=== PATIENT | male | born 1940 | race Caucasian/White ===

== ENCOUNTER 2017-05-28 21:43 | Observation (INO) | payer MEDICARE, OTHER ==
[2017-05-28] MEDS ORDERED: HYDROmorphone 2 MG/ML Syringe IVPUSH ONE (22:03)
[2017-05-28] MEDS ORDERED: Sodium Chloride 0.9% 2.5 ML Syringe FLUSH PRN (22:03)
[2017-05-28] MEDS ORDERED: Sodium Chloride 0.9% 10 ML Syringe FLUSH PRN (22:03)
[2017-05-28] MEDS ORDERED: Ondansetron 4 MG/2 ML SDV IVPUSH ONE (22:03)
--- NOTE | 2017-05-28 22:07 | EDM.PDOC ---
ED HPI GENERAL MEDICAL PROBLEM - General Chief Complaint: Abdominal Pain Stated Complaint: STOMACH PAIN Time Seen by Provider: 05/28/17 21:58 - History of Present Illness INITIAL COMMENTS - FREE TEXT/NARRATIVE: HISTORY AND PHYSICAL: History of present illness: Patient 77-year-old white male percent concern of lower abdominal pain patient has history of COPD he denies any prior abdominal surgery denies any history of diverticular disease gallbladder disease. There's been no vomiting no diarrhea no urinary symptoms. Review of systems: As per history of present illness and below otherwise all systems reviewed and negative. Past medical history: As per history of present illness and as reviewed below otherwise noncontributory. Surgical history: As per history of present illness and as reviewed below otherwise noncontributory. Social history: No reported history of drug or alcohol abuse. Family history: As per history of present illness and as reviewed below otherwise noncontributory. Physical exam: HEENT: Atraumatic, normocephalic, pupils reactive, negative for conjunctival pallor or scleral icterus, mucous membranes moist, throat clear, neck supple, nontender, trachea midline. Lungs: Clear to auscultation, breath sounds equal bilaterally, chest nontender. Heart: S1S2, regular, negative for clicks, rubs, or JVD. Abdomen: Soft, nondistended, mild tenderness in his lower abdomen is not well localized is no rebound no guarding. Negative for masses or hepatosplenomegaly. Negative for costovertebral tenderness. Pelvis: Stable nontender. Genitourinary: Deferred. Rectal: Deferred. Extremities: Atraumatic, negative for cords or calf pain. Neurovascular unremarkable. Neuro: Awake, alert, oriented. Cranial nerves II through XII unremarkable. Cerebellum unremarkable. Motor and sensory unremarkable throughout. Exam nonfocal. Diagnostics: CBC CMP amylase lipase UA troponin EKG chest x-ray CT abdomen and pelvis Therapeutics: Normal saline at 125 mL an hour Dilaudid 1 mg IV Zofran 4 mg IV Impression: #1 abdominal pain Definitive disposition and diagnosis as appropriate pending reevaluation and review of above. Right Abdomen Pain Score (Numeric/FACES): 8 - Related Data Allergies Allergy/AdvReac Type Severity Reaction Status Date / Time No Known Allergies Allergy Verified 08/14/16 15:14 Home Meds: Home Meds Budesonide/Formoterol [Symbicort 160-4.5 MCG] 1 puff INH BID 06/02/14 [History] Tiotropium [Spiriva] 18 mcg INH BID 06/02/14 [History] Albuterol [Ventolin HFA] 2 puff INH ASDIRECTED PRN 05/28/17 [History] Omeprazole 20 mg PO DAILY 05/28/17 [History] Past Medical History HEENT History: Reports: None Cardiovascular History: Reports: None Respiratory History: Reports: COPD Gastrointestinal History: Reports: None Genitourinary History: Reports: None Musculoskeletal History: Reports: None Neurological History: Reports: None Psychiatric History: Reports: None Endocrine/Metabolic History: Reports: None Hematologic History: Reports: None Immunologic History: Reports: None Oncologic (Cancer) History: Reports: None Dermatologic History: Reports: None - Infectious Disease History Infectious Disease History: Reports: Chicken Pox, Measles - Past Surgical History Head Surgeries/Procedures: Reports: None HEENT Surgical History: Reports: None Cardiovascular Surgical History: Reports: None Respiratory Surgical History: Reports: None GI Surgical History: Reports: None Male Surgical History: Reports: None Endocrine Surgical History: Reports: None Neurological Surgical History: Reports: None Musculoskeletal Surgical History: Reports: None Dermatological Surgical History: Reports: None Social & Family History - Family History Family Medical History: Noncontributory - Tobacco Use Smoking Status *Q: Former Smoker Years of Tobacco use: 20 Packs/Tins Daily: 1 Used Tobacco, but Quit: Yes Month Tobacco Last Used: 1979 - Caffeine Use Caffeine Use: Reports: Coffee - Alcohol Use Days Per Week of Alcohol Use: 1 Number of Drinks Per Day: 4 Total Drinks Per Week: 4 - Recreational Drug Use Recreational Drug Use: No ED ROS GENERAL - Review of Systems Review Of Systems: ROS reveals no pertinent complaints other than HPI. ED EXAM, GENERAL - Physical Exam Exam: See Below (See dictation) Course - Vital Signs Last Recorded V/S: Last Vital Signs Temp 36.5 C 05/28/17 21:54 Pulse 95 05/28/17 21:54 Resp 20 05/28/17 21:54 BP 136/76 05/28/17 21:54 Pulse Ox 92 L 05/28/17 21:54 - Orders/Labs/Meds Orders: Active Orders 24 hr Category Date Time Status Cardiac Monitoring [RC] . DIRECTED Care 05/28/17 22:01 Active EKG Documentation Completion [RC] STAT Care 05/28/17 22:01 Active Oxygen Therapy, ED [RC] ASDIRECTED Care 05/28/17 22:01 Active Pulse Oximetry [RC] ASDIRECTED Care 05/28/17 22:01 Active Abdomen Pelvis wo Cont [CT] Stat Exams 05/28/17 22:03 Taken CULTURE BLOOD [BC] Stat Lab 05/28/17 22:15 Received CULTURE BLOOD [BC] Stat Lab 05/28/17 22:22 Received Sodium Chloride 0.9% [Normal Saline] 1,000 ml Med 05/28/17 22:15 Active IV STAT Sodium Chloride 0.9% [Saline Flush] Med 05/28/17 22:03 Active 10 ml FLUSH ASDIRECTED PRN Sodium Chloride 0.9% [Saline Flush] Med 05/28/17 22:03 Active 2.5 ml FLUSH ASDIRECTED PRN Blood Culture x2 Reflex Set [OM.PC] Stat Oth 05/28/17 22:03 Ordered Saline Lock Insert [OM.PC] Stat Oth 05/28/17 22:01 Ordered Medication Orders Sodium Chloride (Normal Saline) 1,000 mls @ 125 mls/hr IV STAT KENYA Last Admin: 05/28/17 22:21 Dose: 125 mls/hr Sodium Chloride (Saline Flush) 10 ml FLUSH ASDIRECTED PRN PRN Reason: Keep Vein Open Sodium Chloride (Saline Flush) 2.5 ml FLUSH ASDIRECTED PRN PRN Reason: Keep Vein Open Labs: Laboratory Tests 05/28/17 05/28/17 05/28/17 Range/Units 22:00 22:15 22:15 WBC 13.20 H (4.0-11.0) K/uL RBC 4.86 (4.50-5.90) M/uL Hgb 14.7 (13.0-17.0) g/dL Hct 43.6 (38.0-50.0) % MCV 89.7 (80.0-98.0) fL MCH 30.2 (27.0-32.0) pg MCHC 33.7 (31.0-37.0) g/dL RDW Std Deviation 45.1 (28.0-62.0) fl RDW Coeff of [place] 14 (11.0-15.0) % Plt Count 226 (150-400) K/uL MPV 10.00 (7.40-12.00) fL Neut % (Auto) 79.1 (48.0-80.0) % Lymph % (Auto) 10.8 L (16.0-40.0) % [place] % (Auto) 8.5 (0.0-15.0) % Eos % (Auto) 1.3 (0.0-7.0) % Baso % (Auto) 0.3 (0.0-1.5) % Neut # (Auto) 10.4 H (1.4-5.7) K/uL Lymph # (Auto) 1.4 (0.6-2.4) K/uL [place] # (Auto) 1.1 H (0.0-0.8) K/uL Eos # (Auto) 0.2 (0.0-0.7) K/uL Baso # (Auto) 0.0 (0.0-0.1) K/uL Nucleated RBC % 0.0 /100WBC Nucleated RBCs # 0 K/uL INR 1.01 (0.86-1.11) Sodium (136-146) mmol/L Potassium (3.5-5.1) mmol/L Chloride (98-110) mmol/L Carbon Dioxide (21-31) mmol/L BUN (6.0-23.0) mg/dL Creatinine (0.6-1.5) mg/dL Est Cr Clr Drug Dosing mL/min Estimated GFR (MDRD) ml/min Glucose (60-110) mg/dL Calcium (8.8-10.8) mg/dL Total Bilirubin (0.1-1.5) mg/dL AST (5-40) IU/L ALT (8-54) IU/L Alkaline Phosphatase (40-150) Troponin I (0.0-0.29) NG/ML Total Protein (6.0-8.0) g/dL Albumin (3.4-4.8) g/dL Globulin (2.0-3.5) g/dL Albumin/Globulin Ratio (1.3-2.8) Amylase (10-90) U/L Lipase (7-80) U/L Urine Color YELLOW Urine Appearance CLEAR Urine pH 7.0 (5.0-8.0) Ur Specific [place] 1.010 (1.001-1.035) Urine Protein NEGATIVE (NEGATIVE) mg/dL Urine Glucose (UA) NEGATIVE (NEGATIVE) mg/dL Urine Ketones NEGATIVE (NEGATIVE) mg/dL Urine Occult Blood NEGATIVE (NEGATIVE) Urine Nitrite NEGATIVE (NEGATIVE) Urine Bilirubin NEGATIVE (NEGATIVE) Urine Urobilinogen 0.2 (<2.0) EU/dL Ur Leukocyte Esterase NEGATIVE (NEGATIVE) Urine RBC 0-3 (0-2/HPF) Urine WBC 0-2 (0-5/HPF) Ur Epithelial Cells RARE (NONE-FEW) Urine Bacteria RARE (NEGATIVE) 05/28/17 Range/Units 22:15 WBC (4.0-11.0) K/uL RBC (4.50-5.90) M/uL Hgb (13.0-17.0) g/dL Hct (38.0-50.0) % MCV (80.0-98.0) fL MCH (27.0-32.0) pg MCHC (31.0-37.0) g/dL RDW Std Deviation (28.0-62.0) fl RDW Coeff of [place] (11.0-15.0) % Plt Count (150-400) K/uL MPV (7.40-12.00) fL Neut % (Auto) (48.0-80.0) % Lymph % (Auto) (16.0-40.0) % [place] % (Auto) (0.0-15.0) % Eos % (Auto) (0.0-7.0) % Baso % (Auto) (0.0-1.5) % Neut # (Auto) (1.4-5.7) K/uL Lymph # (Auto) (0.6-2.4) K/uL [place] # (Auto) (0.0-0.8) K/uL Eos # (Auto) (0.0-0.7) K/uL Baso # (Auto) (0.0-0.1) K/uL Nucleated RBC % /100WBC Nucleated RBCs # K/uL INR (0.86-1.11) Sodium 138 (136-146) mmol/L Potassium 3.9 (3.5-5.1) mmol/L Chloride 104 (98-110) mmol/L Carbon Dioxide 22 (21-31) mmol/L BUN 17 (6.0-23.0) mg/dL Creatinine 1.0 (0.6-1.5) mg/dL Est Cr Clr Drug Dosing 59.67 mL/min Estimated GFR (MDRD) > 60.0 ml/min Glucose 127 H (60-110) mg/dL Calcium 9.3 (8.8-10.8) mg/dL Total Bilirubin 0.7 (0.1-1.5) mg/dL AST 17 (5-40) IU/L ALT 18 (8-54) IU/L Alkaline Phosphatase 79 (40-150) Troponin I < 0.10 (0.0-0.29) NG/ML Total Protein 7.4 (6.0-8.0) g/dL Albumin 3.9 (3.4-4.8) g/dL Globulin 3.5 (2.0-3.5) g/dL Albumin/Globulin Ratio 1.1 L (1.3-2.8) Amylase 72 (10-90) U/L Lipase 15 (7-80) U/L Urine Color Urine Appearance Urine pH (5.0-8.0) Ur Specific [place] (1.001-1.035) Urine Protein (NEGATIVE) mg/dL Urine Glucose (UA) (NEGATIVE) mg/dL Urine Ketones (NEGATIVE) mg/dL Urine Occult Blood (NEGATIVE) Urine Nitrite (NEGATIVE) Urine Bilirubin (NEGATIVE) Urine Urobilinogen (<2.0) EU/dL Ur Leukocyte Esterase (NEGATIVE) Urine RBC (0-2/HPF) Urine WBC (0-5/HPF) Ur Epithelial Cells (NONE-FEW) Urine Bacteria (NEGATIVE) Meds: Medications Generic Name Dose Route Start Last Admin Trade Name Freq PRN Reason Stop Dose Admin Sodium Chloride 1,000 mls @ 125 mls/hr 05/28/17 22:15 05/28/17 22:21 Normal Saline IV 125 mls/hr STAT KENYA Administration Sodium Chloride 10 ml 05/28/17 22:03 Saline Flush FLUSH ASDIRECTED PRN Keep Vein Open Sodium Chloride 2.5 ml 05/28/17 22:03 Saline Flush FLUSH ASDIRECTED PRN Keep Vein Open Discontinued Medications Generic Name Dose Route Start Last Admin Trade Name Freq PRN Reason Stop Dose Admin Hydromorphone HCl 1 mg 05/28/17 22:03 05/28/17 22:20 Dilaudid IVPUSH 05/28/17 22:04 1 mg ONETIME ONE Administration Ondansetron HCl 4 mg 05/28/17 22:03 05/28/17 22:20 Zofran IVPUSH 05/28/17 22:04 4 mg ONETIME ONE Administration Departure - Departure Time of Disposition: 23:48 Disposition: Refer to Observation Condition: Good Clinical Impression: Appendicitis - Discharge Information Referrals: Shaggy Miller MD [Primary Care Provider] - Forms: ED Department Discharge - My Orders Last 24 Hours: My Active Orders 05/28/17 22:01 Cardiac Monitoring [RC] . DIRECTED EKG Documentation Completion [RC] STAT Oxygen Therapy, ED [RC] ASDIRECTED Pulse Oximetry [RC] ASDIRECTED Saline Lock Insert [OM.PC] Stat 05/28/17 22:03 Abdomen Pelvis wo Cont [CT] Stat Sodium Chloride 0.9% [Saline Flush] 10 ml FLUSH ASDIRECTED PRN Sodium Chloride 0.9% [Saline Flush] 2.5 ml FLUSH ASDIRECTED PRN Blood Culture x2 Reflex Set [OM.PC] Stat 05/28/17 22:15 CULTURE BLOOD [BC] Stat Sodium Chloride 0.9% [Normal Saline] 1,000 ml IV STAT 05/28/17 22:22 CULTURE BLOOD [BC] Stat - Assessment/Plan Last 24 Hours: My Active Orders 05/28/17 22:01 Cardiac Monitoring [RC] . DIRECTED EKG Documentation Completion [RC] STAT Oxygen Therapy, ED [RC] ASDIRECTED Pulse Oximetry [RC] ASDIRECTED Saline Lock Insert [OM.PC] Stat 05/28/17 22:03 Abdomen Pelvis wo Cont [CT] Stat Sodium Chloride 0.9% [Saline Flush] 10 ml FLUSH ASDIRECTED PRN Sodium Chloride 0.9% [Saline Flush] 2.5 ml FLUSH ASDIRECTED PRN Blood Culture x2 Reflex Set [OM.PC] Stat 05/28/17 22:15 CULTURE BLOOD [BC] Stat Sodium Chloride 0.9% [Normal Saline] 1,000 ml IV STAT 05/28/17 22:22 CULTURE BLOOD [BC] Stat
[2017-05-28] MEDS ORDERED: Sodium Chloride 0.9% 1,000 ML IV SCH (22:15)
[2017-05-28 22:59] LABS: CHLORIDE,CL 104 mmol/L (98-110); SODIUM,NA 138 mmol/L (136-146)
[2017-05-29] MEDS ORDERED: cefOXitin 2 GM in Premix Bag 1 BAG IV ONE ×2
--- NOTE | 2017-05-29 00:15 | PCM.CONS ---
<Duc Don - Last Filed: 05/29/17 00:10> H&P History of Present Illness - General Date of Service: 05/29/17 Admit Problem/Dx: Appendicitis Source of Information: Patient History Limitations: Reports: No Limitations - History of Present Illness Initial Comments - Free Text/Narative: Mr. Doyle is a 77 year old male with a significant PMH of COPD in inhaler regimen, no previous abdominal surgeries, no allergies who presented to the ED 05/28/17 with acute onset of RLQ and periumbilical abdominal pain, nausea, symptomatic fever, chills, cold sweats, loss of appetite. He underwent CT imaging in the ED suspicious of appendicitis, found to have leukocytosis to 13. The patient denies any problems with anesthesia, states he is able to walk carrying groceries and go up stairs without issue. Onset of Symptoms: Reports: Sudden Symptom Onset Date: 05/28/17 Symptom Onset Time: 12:00 Location: Reports: Abdomen Quality: Reports: Ache Severity: Moderate Improves with: Reports: None Worsens with: Reports: Movement Associated Symptoms: Reports: Fever/Chills, Loss of Appetite, Nausea/Vomiting, Other (Pain) Right Abdomen Pain Score (Numeric/FACES): 8 - Related Data Allergies/Adverse Reactions: Allergies Allergy/AdvReac Type Severity Reaction Status Date / Time No Known Allergies Allergy Verified 08/14/16 15:14 Home Medications: Home Meds Budesonide/Formoterol [Symbicort 160-4.5 MCG] 1 puff INH BID 06/02/14 [History] Tiotropium [Spiriva] 18 mcg INH BID 06/02/14 [History] Albuterol [Ventolin HFA] 2 puff INH ASDIRECTED PRN 05/28/17 [History] Omeprazole 20 mg PO DAILY 05/28/17 [History] Past Medical History HEENT History: Reports: None Cardiovascular History: Reports: None Respiratory History: Reports: COPD Gastrointestinal History: Reports: None Genitourinary History: Reports: None Musculoskeletal History: Reports: None Neurological History: Reports: None Psychiatric History: Reports: None Endocrine/Metabolic History: Reports: None Hematologic History: Reports: None Immunologic History: Reports: None Oncologic (Cancer) History: Reports: None Dermatologic History: Reports: None - Infectious Disease History Infectious Disease History: Reports: Chicken Pox, Measles - Past Surgical History Head Surgeries/Procedures: Reports: None HEENT Surgical History: Reports: None Cardiovascular Surgical History: Reports: None Respiratory Surgical History: Reports: None GI Surgical History: Reports: None Male Surgical History: Reports: None Endocrine Surgical History: Reports: None Neurological Surgical History: Reports: None Musculoskeletal Surgical History: Reports: None Dermatological Surgical History: Reports: None Social & Family History - Family History Family Medical History: Noncontributory - Tobacco Use Smoking Status *Q: Former Smoker Years of Tobacco use: 20 Packs/Tins Daily: 1 Used Tobacco, but Quit: Yes Month Tobacco Last Used: 1979 - Caffeine Use Caffeine Use: Reports: Coffee - Alcohol Use Total Drinks Per Week Comment: Less than 7 - Recreational Drug Use Recreational Drug Use: No H&P Review of Systems - Review of Systems: Review Of Systems: See Below General: Reports: Fever, Chills, Diaphoresis, Decreased Appetite HEENT: Reports: No Symptoms Pulmonary: Reports: Other (No increased shortness of breath over baseline) Cardiovascular: Reports: No Symptoms. Denies: Chest Pain, Palpitations Gastrointestinal: Reports: Other (See HPI) Genitourinary: Reports: No Symptoms Musculoskeletal: Reports: No Symptoms Skin: Reports: No Symptoms Psychiatric: Reports: No Symptoms Neurological: Reports: No Symptoms Exam - Exam Exam: See Below - Vital Signs Vital Signs: Last Vital Signs Temp 36.5 C 05/28/17 21:54 Pulse 95 05/28/17 21:54 Resp 20 05/28/17 21:54 BP 136/76 05/28/17 21:54 Pulse Ox 92 L 05/28/17 21:54 Weight: 172 lb - Exam Quality Assessment: No: Supplemental Oxygen, Urinary Catheter, Restraints General: Alert, Oriented, Moderate Distress HEENT: Conjunctiva Clear, EOMI, Hearing Intact Neck: Supple, Trachea Midline Lungs: Decreased Breath Sounds (Bilaterally ). No: Crackles, Rales, Rhonchi, Stridor, Wheezing Cardiovascular: Regular Rate, Regular Rhythm GI/Abdominal Exam: Guarding (To RLQ), Tender (RLQ, not increased on rebound) Extremities: Normal Inspection, Normal Range of Motion, Non-Tender, No Pedal Edema Peripheral Pulses: 2+: Radial (L), Radial (R), Dorsalis Pedis (L), Dorsalis Pedis (R) Neurological: Cranial Nerves Intact Neuro Extensive - Mental Status: Alert, Oriented x3, Normal Mood/Affect, Normal Cognition, Memory Intact Psychiatric: Alert, Normal Affect, Normal Mood - Patient Data Lab Results Last 24 hrs: Laboratory Results - last 24 hr 05/28/17 05/28/17 05/28/17 Range/Units 22:00 22:15 22:15 WBC 13.20 H (4.0-11.0) K/uL RBC 4.86 (4.50-5.90) M/uL Hgb 14.7 (13.0-17.0) g/dL Hct 43.6 (38.0-50.0) % MCV 89.7 (80.0-98.0) fL MCH 30.2 (27.0-32.0) pg MCHC 33.7 (31.0-37.0) g/dL RDW Std Deviation 45.1 (28.0-62.0) fl RDW Coeff of [place] 14 (11.0-15.0) % Plt Count 226 (150-400) K/uL MPV 10.00 (7.40-12.00) fL Neut % (Auto) 79.1 (48.0-80.0) % Lymph % (Auto) 10.8 L (16.0-40.0) % [place] % (Auto) 8.5 (0.0-15.0) % Eos % (Auto) 1.3 (0.0-7.0) % Baso % (Auto) 0.3 (0.0-1.5) % Neut # (Auto) 10.4 H (1.4-5.7) K/uL Lymph # (Auto) 1.4 (0.6-2.4) K/uL [place] # (Auto) 1.1 H (0.0-0.8) K/uL Eos # (Auto) 0.2 (0.0-0.7) K/uL Baso # (Auto) 0.0 (0.0-0.1) K/uL Nucleated RBC % 0.0 /100WBC Nucleated RBCs # 0 K/uL INR 1.01 (0.86-1.11) Sodium (136-146) mmol/L Potassium (3.5-5.1) mmol/L Chloride (98-110) mmol/L Carbon Dioxide (21-31) mmol/L BUN (6.0-23.0) mg/dL Creatinine (0.6-1.5) mg/dL Est Cr Clr Drug Dosing mL/min Estimated GFR (MDRD) ml/min Glucose (60-110) mg/dL Calcium (8.8-10.8) mg/dL Total Bilirubin (0.1-1.5) mg/dL AST (5-40) IU/L ALT (8-54) IU/L Alkaline Phosphatase (40-150) Troponin I (0.0-0.29) NG/ML Total Protein (6.0-8.0) g/dL Albumin (3.4-4.8) g/dL Globulin (2.0-3.5) g/dL Albumin/Globulin Ratio (1.3-2.8) Amylase (10-90) U/L Lipase (7-80) U/L Urine Color YELLOW Urine Appearance CLEAR Urine pH 7.0 (5.0-8.0) Ur Specific [place] 1.010 (1.001-1.035) Urine Protein NEGATIVE (NEGATIVE) mg/dL Urine Glucose (UA) NEGATIVE (NEGATIVE) mg/dL Urine Ketones NEGATIVE (NEGATIVE) mg/dL Urine Occult Blood NEGATIVE (NEGATIVE) Urine Nitrite NEGATIVE (NEGATIVE) Urine Bilirubin NEGATIVE (NEGATIVE) Urine Urobilinogen 0.2 (<2.0) EU/dL Ur Leukocyte Esterase NEGATIVE (NEGATIVE) Urine RBC 0-3 (0-2/HPF) Urine WBC 0-2 (0-5/HPF) Ur Epithelial Cells RARE (NONE-FEW) Urine Bacteria RARE (NEGATIVE) 05/28/17 Range/Units 22:15 WBC (4.0-11.0) K/uL RBC (4.50-5.90) M/uL Hgb (13.0-17.0) g/dL Hct (38.0-50.0) % MCV (80.0-98.0) fL MCH (27.0-32.0) pg MCHC (31.0-37.0) g/dL RDW Std Deviation (28.0-62.0) fl RDW Coeff of Spring (11.0-15.0) % Plt Count (150-400) K/uL MPV (7.40-12.00) fL Neut % (Auto) (48.0-80.0) % Lymph % (Auto) (16.0-40.0) % [place] % (Auto) (0.0-15.0) % Eos % (Auto) (0.0-7.0) % Baso % (Auto) (0.0-1.5) % Neut # (Auto) (1.4-5.7) K/uL Lymph # (Auto) (0.6-2.4) K/uL [place] # (Auto) (0.0-0.8) K/uL Eos # (Auto) (0.0-0.7) K/uL Baso # (Auto) (0.0-0.1) K/uL Nucleated RBC % /100WBC Nucleated RBCs # K/uL INR (0.86-1.11) Sodium 138 (136-146) mmol/L Potassium 3.9 (3.5-5.1) mmol/L Chloride 104 (98-110) mmol/L Carbon Dioxide 22 (21-31) mmol/L BUN 17 (6.0-23.0) mg/dL Creatinine 1.0 (0.6-1.5) mg/dL Est Cr Clr Drug Dosing 59.67 mL/min Estimated GFR (MDRD) > 60.0 ml/min Glucose 127 H (60-110) mg/dL Calcium 9.3 (8.8-10.8) mg/dL Total Bilirubin 0.7 (0.1-1.5) mg/dL AST 17 (5-40) IU/L ALT 18 (8-54) IU/L Alkaline Phosphatase 79 (40-150) Troponin I < 0.10 (0.0-0.29) NG/ML Total Protein 7.4 (6.0-8.0) g/dL Albumin 3.9 (3.4-4.8) g/dL Globulin 3.5 (2.0-3.5) g/dL Albumin/Globulin Ratio 1.1 L (1.3-2.8) Amylase 72 (10-90) U/L Lipase 15 (7-80) U/L Urine Color Urine Appearance Urine pH (5.0-8.0) Ur Specific [place] (1.001-1.035) Urine Protein (NEGATIVE) mg/dL Urine Glucose (UA) (NEGATIVE) mg/dL Urine Ketones (NEGATIVE) mg/dL Urine Occult Blood (NEGATIVE) Urine Nitrite (NEGATIVE) Urine Bilirubin (NEGATIVE) Urine Urobilinogen (<2.0) EU/dL Ur Leukocyte Esterase (NEGATIVE) Urine RBC (0-2/HPF) Urine WBC (0-5/HPF) Ur Epithelial Cells (NONE-FEW) Urine Bacteria (NEGATIVE) Result Diagrams: 05/28/17 22:15 05/28/17 22:15 Consult PN Assessment/Plan Procedures: Procedures EMERGENCY DEPT VISIT (08/14/16) IMMUNIZATION ADMIN (06/02/14) RPR S/N/AX/GEN/TRNK 2.5CM/< (08/14/16) TD VACC NO PRESV 7 YRS+ IM (06/02/14) (1) Appendicitis SNOMED Code(s): 84966090 Code(s): K37 - UNSPECIFIED APPENDICITIS Priority: High Current Visit: Yes QualifierTitle: Appendicitis type: acute appendicitis Assessment:: Mr. Doyle is a 77 year old male with a significant PMH of COPD on inhaler regimen who is able to ambulate up stairs without increased shortness of breath , no known allergies, no previous abdominal surgeries who has tolerated anesthesia in the past without incident who presents with leukocytosis, CT concerning of appendicitis, RLQ and periumbilical abdominal pain with guarding, symptomatic fevers and chills, nausea, loss of appetite, last ate or drank at noon of 05/28/17. Problem List Initiated/Reviewed/Updated: Yes Plan: Recommend admission to Medical-Surgical floor, IVF rehydration, antibiotic therapy and laparoscopic versus open appendectomy later today. The risks, benefits and alternatives of the procedure were discussed with the patient including bleeding, infection, damage to surrounding structures, conversion to open, blood clots. The patient and his at beside agreed to this plan. The patient stated he would like to be full code. <Rashel Garcia - Last Filed: 05/29/17 00:26> H&P History of Present Illness - General Admit Problem/Dx: Admission Diagnosis/Problem Admission Diagnosis/Problem Appendicitis Exam - Vital Signs Vital Signs: Last Vital Signs Temp 97.7 F 05/28/17 21:54 Pulse 95 05/28/17 21:54 Resp 20 05/28/17 21:54 BP 136/76 05/28/17 21:54 Pulse Ox 92 L 05/28/17 21:54 - Patient Data Lab Results Last 24 hrs: Laboratory Results - last 24 hr 05/28/17 05/28/17 05/28/17 Range/Units 22:00 22:15 22:15 WBC 13.20 H (4.0-11.0) K/uL RBC 4.86 (4.50-5.90) M/uL Hgb 14.7 (13.0-17.0) g/dL Hct 43.6 (38.0-50.0) % MCV 89.7 (80.0-98.0) fL MCH 30.2 (27.0-32.0) pg MCHC 33.7 (31.0-37.0) g/dL RDW Std Deviation 45.1 (28.0-62.0) fl RDW Coeff of [place] 14 (11.0-15.0) % Plt Count 226 (150-400) K/uL MPV 10.00 (7.40-12.00) fL Neut % (Auto) 79.1 (48.0-80.0) % Lymph % (Auto) 10.8 L (16.0-40.0) % [place] % (Auto) 8.5 (0.0-15.0) % Eos % (Auto) 1.3 (0.0-7.0) % Baso % (Auto) 0.3 (0.0-1.5) % Neut # (Auto) 10.4 H (1.4-5.7) K/uL Lymph # (Auto) 1.4 (0.6-2.4) K/uL [place] # (Auto) 1.1 H (0.0-0.8) K/uL Eos # (Auto) 0.2 (0.0-0.7) K/uL Baso # (Auto) 0.0 (0.0-0.1) K/uL Nucleated RBC % 0.0 /100WBC Nucleated RBCs # 0 K/uL INR 1.01 (0.86-1.11) Sodium (136-146) mmol/L Potassium (3.5-5.1) mmol/L Chloride (98-110) mmol/L Carbon Dioxide (21-31) mmol/L BUN (6.0-23.0) mg/dL Creatinine (0.6-1.5) mg/dL Est Cr Clr Drug Dosing mL/min Estimated GFR (MDRD) ml/min Glucose (60-110) mg/dL Calcium (8.8-10.8) mg/dL Total Bilirubin (0.1-1.5) mg/dL AST (5-40) IU/L ALT (8-54) IU/L Alkaline Phosphatase (40-150) Troponin I (0.0-0.29) NG/ML Total Protein (6.0-8.0) g/dL Albumin (3.4-4.8) g/dL Globulin (2.0-3.5) g/dL Albumin/Globulin Ratio (1.3-2.8) Amylase (10-90) U/L Lipase (7-80) U/L Urine Color YELLOW Urine Appearance CLEAR Urine pH 7.0 (5.0-8.0) Ur Specific [place] 1.010 (1.001-1.035) Urine Protein NEGATIVE (NEGATIVE) mg/dL Urine Glucose (UA) NEGATIVE (NEGATIVE) mg/dL Urine Ketones NEGATIVE (NEGATIVE) mg/dL Urine Occult Blood NEGATIVE (NEGATIVE) Urine Nitrite NEGATIVE (NEGATIVE) Urine Bilirubin NEGATIVE (NEGATIVE) Urine Urobilinogen 0.2 (<2.0) EU/dL Ur Leukocyte Esterase NEGATIVE (NEGATIVE) Urine RBC 0-3 (0-2/HPF) Urine WBC 0-2 (0-5/HPF) Ur Epithelial Cells RARE (NONE-FEW) Urine Bacteria RARE (NEGATIVE) 05/28/17 Range/Units 22:15 WBC (4.0-11.0) K/uL RBC (4.50-5.90) M/uL Hgb (13.0-17.0) g/dL Hct (38.0-50.0) % MCV (80.0-98.0) fL MCH (27.0-32.0) pg MCHC (31.0-37.0) g/dL RDW Std Deviation (28.0-62.0) fl RDW Coeff of [place] (11.0-15.0) % Plt Count (150-400) K/uL MPV (7.40-12.00) fL Neut % (Auto) (48.0-80.0) % Lymph % (Auto) (16.0-40.0) % [place] % (Auto) (0.0-15.0) % Eos % (Auto) (0.0-7.0) % Baso % (Auto) (0.0-1.5) % Neut # (Auto) (1.4-5.7) K/uL Lymph # (Auto) (0.6-2.4) K/uL [place] # (Auto) (0.0-0.8) K/uL Eos # (Auto) (0.0-0.7) K/uL Baso # (Auto) (0.0-0.1) K/uL Nucleated RBC % /100WBC Nucleated RBCs # K/uL INR (0.86-1.11) Sodium 138 (136-146) mmol/L Potassium 3.9 (3.5-5.1) mmol/L Chloride 104 (98-110) mmol/L Carbon Dioxide 22 (21-31) mmol/L BUN 17 (6.0-23.0) mg/dL Creatinine 1.0 (0.6-1.5) mg/dL Est Cr Clr Drug Dosing 59.67 mL/min Estimated GFR (MDRD) > 60.0 ml/min Glucose 127 H (60-110) mg/dL Calcium 9.3 (8.8-10.8) mg/dL Total Bilirubin 0.7 (0.1-1.5) mg/dL AST 17 (5-40) IU/L ALT 18 (8-54) IU/L Alkaline Phosphatase 79 (40-150) Troponin I < 0.10 (0.0-0.29) NG/ML Total Protein 7.4 (6.0-8.0) g/dL Albumin 3.9 (3.4-4.8) g/dL Globulin 3.5 (2.0-3.5) g/dL Albumin/Globulin Ratio 1.1 L (1.3-2.8) Amylase 72 (10-90) U/L Lipase 15 (7-80) U/L Urine Color Urine Appearance Urine pH (5.0-8.0) Ur Specific [place] (1.001-1.035) Urine Protein (NEGATIVE) mg/dL Urine Glucose (UA) (NEGATIVE) mg/dL Urine Ketones (NEGATIVE) mg/dL Urine Occult Blood (NEGATIVE) Urine Nitrite (NEGATIVE) Urine Bilirubin (NEGATIVE) Urine Urobilinogen (<2.0) EU/dL Ur Leukocyte Esterase (NEGATIVE) Urine RBC (0-2/HPF) Urine WBC (0-5/HPF) Ur Epithelial Cells (NONE-FEW) Urine Bacteria (NEGATIVE) Result Diagrams: 05/28/17 22:15 05/28/17 22:15 Consult PN Assessment/Plan Procedures: Procedures EMERGENCY DEPT VISIT (08/14/16) IMMUNIZATION ADMIN (06/02/14) RPR S/N/AX/GEN/TRNK 2.5CM/< (08/14/16) TD VACC NO PRESV 7 YRS+ IM (06/02/14) (1) COPD (chronic obstructive pulmonary disease) SNOMED Code(s): 07287238 Code(s): J44.9 - CHRONIC OBSTRUCTIVE PULMONARY DISEASE, UNSPECIFIED Priority: Medium Current Visit: Yes Qualifiers: Chronic bronchitis type: simple My Orders Last 24 Hours: My Active Orders 05/29/17 00:17 Oxygen Therapy [RC] PRN Pulse Oximetry [RC] INTERMITTENT Up ad Lisbeth [RC] ASDIRECTED Vital Signs [RC] PER UNIT ROUTINE Sequential Compression Device [OM.PC] Routine Resuscitation Status Routine 05/29/17 00:18 Skin Preparation [RC] .PREOP Urinary Catheter Assessment [RC] ASDIRECTED Morphine See Dose Instructions IVPUSH Q1H PRN cefOXitin [Mefoxin in Dextrose,Iso-Osm 2 GM/50 ML] 2 gm Premix Bag 1 bag IV ONETIME 05/29/17 00:20 Antiembolic Devices [RC] PER UNIT ROUTINE Urinary Catheter Assessment [RC] ASDIRECTED 05/29/17 00:22 Admission Status [Patient Status] [ADT] Routine 05/29/17 00:30 Lactated Ringers @ 125 MLS/HR(1000ml) Lactated Ringers [Ringers, Lactated] 1, 000 ml IV ASDIRECTED 05/29/17 06:00 Antiembolic Hose [OM.PC] PER UNIT ROUTINE 05/29/17 08:00 cefOXitin [Mefoxin in Dextrose,Iso-Osm 1 GM/50 ML] 1 gm Premix Bag 1 bag IV Q8H 05/29/17 09:30 Lino Catheter Insertion [Insert Urinary Catheter] [OM.PC] Q24H 05/29/17 Breakfast Nothing Per Oral Diet [DIET] 05/30/17 06:00 Antiembolic Hose [OM.PC] PER UNIT ROUTINE Plan: Patient seen and examined with Dr. Don. I agree with his assessment and plan. Laparoscopic appendectomy, possible open appendectomy. Both operative procedures, along with the risks, including, but not limited to, bleeding, infection, pneumonia, deep venous thrombosis, pulmonary emboli, myocardial infarction, and adjacent organ injury have been reviewed with the patient who voices understanding, offers no questions and agrees to proceed.
[2017-05-29] MEDS ORDERED: Morphine 10 MG/ML Syringe IVPUSH PRN (00:18)
[2017-05-29] MEDS: Lactated Ringers 1,000 ML IV SCH ×3 (01:38→23:07)
[2017-05-29] MEDS ORDERED: ceFAZolin 1 GM Vial ONE (07:36)
[2017-05-29] MEDS ORDERED: Bupivacaine 0.5% 10 ML SDV ONE (07:37)
[2017-05-29] MEDS ORDERED: Famotidine 20 MG/2 ML SDV IVPUSH ONE (07:37)
--- NOTE | 2017-05-29 07:37 | PCM.PREANE ---
Preanesthetic Assessment - Anesthesia/Transfusion/Family Hx Anesthesia History: No Prior Anesthesia Transfusion History: No Prior Transfusion(s) - Review of Systems General: No Symptoms Pulmonary: No Symptoms Cardiovascular: No Symptoms Gastrointestinal: No Symptoms Neurological: No Symptoms Other: Reports: None - Physical Assessment NPO Status Date: 05/29/17 NPO Status Time: 00:00 O2 Sat by Pulse Oximetry: 92 Respiratory Rate: 17 Vital Signs: Last Vital Signs Temp 97.4 F 05/29/17 04:00 Pulse 78 05/29/17 04:00 Resp 17 05/29/17 04:00 BP 122/59 L 05/29/17 04:00 Pulse Ox 92 L 05/29/17 04:00 Height: 5 ft 7 in Weight: 78.925 kg ASA Class: 2 Mental Status: Alert & Oriented x3 Airway Class: Mallampati = 2 Dentition: Reports: Dentures (Full upper and lower sets) Thyro-Mental Finger Breadths: 3 Mouth Opening Finger Breadths: 3 ROM/Head Extension: Limited/Partial Lungs: Clear to Auscultation, Decreased Breath Sounds, Wheezing (Exp) Cardiovascular: Regular Rate, Regular Rhythm - Lab Values: Laboratory Last Values WBC 13.20 K/uL (4.0-11.0) H 05/28/17 22:15 RBC 4.86 M/uL (4.50-5.90) 05/28/17 22:15 Hgb 14.7 g/dL (13.0-17.0) 05/28/17 22:15 Hct 43.6 % (38.0-50.0) 05/28/17 22:15 MCV 89.7 fL (80.0-98.0) 05/28/17 22:15 MCH 30.2 pg (27.0-32.0) 05/28/17 22:15 MCHC 33.7 g/dL (31.0-37.0) 05/28/17 22:15 RDW Std Deviation 45.1 fl (28.0-62.0) 05/28/17 22:15 RDW Coeff of Spring 14 % (11.0-15.0) 05/28/17 22:15 Plt Count 226 K/uL (150-400) 05/28/17 22:15 MPV 10.00 fL (7.40-12.00) 05/28/17 22:15 Neut % (Auto) 79.1 % (48.0-80.0) 05/28/17 22:15 Lymph % (Auto) 10.8 % (16.0-40.0) L 05/28/17 22:15 [place] % (Auto) 8.5 % (0.0-15.0) 05/28/17 22:15 Eos % (Auto) 1.3 % (0.0-7.0) 05/28/17 22:15 Baso % (Auto) 0.3 % (0.0-1.5) 05/28/17 22:15 Neut # (Auto) 10.4 K/uL (1.4-5.7) H 05/28/17 22:15 Lymph # (Auto) 1.4 K/uL (0.6-2.4) 05/28/17 22:15 [place] # (Auto) 1.1 K/uL (0.0-0.8) H 05/28/17 22:15 Eos # (Auto) 0.2 K/uL (0.0-0.7) 05/28/17 22:15 Baso # (Auto) 0.0 K/uL (0.0-0.1) 05/28/17 22:15 Nucleated RBC % 0.0 /100WBC 05/28/17 22:15 Nucleated RBCs # 0 K/uL 05/28/17 22:15 INR 1.01 (0.86-1.11) 05/28/17 22:15 Sodium 138 mmol/L (136-146) 05/28/17 22:15 Potassium 3.9 mmol/L (3.5-5.1) 05/28/17 22:15 Chloride 104 mmol/L (98-110) 05/28/17 22:15 Carbon Dioxide 22 mmol/L (21-31) 05/28/17 22:15 BUN 17 mg/dL (6.0-23.0) 05/28/17 22:15 Creatinine 1.0 mg/dL (0.6-1.5) 05/28/17 22:15 Est Cr Clr Drug Dosing 59.67 mL/min 05/28/17 22:15 Estimated GFR (MDRD) > 60.0 ml/min 05/28/17 22:15 Glucose 127 mg/dL (60-110) H 05/28/17 22:15 Calcium 9.3 mg/dL (8.8-10.8) 05/28/17 22:15 Total Bilirubin 0.7 mg/dL (0.1-1.5) 05/28/17 22:15 AST 17 IU/L (5-40) 05/28/17 22:15 ALT 18 IU/L (8-54) 05/28/17 22:15 Alkaline Phosphatase 79 (40-150) 05/28/17 22:15 Troponin I < 0.10 NG/ML (0.0-0.29) 05/28/17 22:15 Total Protein 7.4 g/dL (6.0-8.0) 05/28/17 22:15 Albumin 3.9 g/dL (3.4-4.8) 05/28/17 22:15 Globulin 3.5 g/dL (2.0-3.5) 05/28/17 22:15 Albumin/Globulin Ratio 1.1 (1.3-2.8) L 05/28/17 22:15 Amylase 72 U/L (10-90) 05/28/17 22:15 Lipase 15 U/L (7-80) 05/28/17 22:15 Urine Color YELLOW 05/28/17 22:00 Urine Appearance CLEAR 05/28/17 22:00 Urine pH 7.0 (5.0-8.0) 05/28/17 22:00 Ur Specific [place] 1.010 (1.001-1.035) 05/28/17 22:00 Urine Protein NEGATIVE mg/dL (NEGATIVE) 05/28/17 22:00 Urine Glucose (UA) NEGATIVE mg/dL (NEGATIVE) 05/28/17 22:00 Urine Ketones NEGATIVE mg/dL (NEGATIVE) 05/28/17 22:00 Urine Occult Blood NEGATIVE (NEGATIVE) 05/28/17 22:00 Urine Nitrite NEGATIVE (NEGATIVE) 05/28/17 22:00 Urine Bilirubin NEGATIVE (NEGATIVE) 05/28/17 22:00 Urine Urobilinogen 0.2 EU/dL (<2.0) 05/28/17 22:00 Ur Leukocyte Esterase NEGATIVE (NEGATIVE) 05/28/17 22:00 Urine RBC 0-3 (0-2/HPF) 05/28/17 22:00 Urine WBC 0-2 (0-5/HPF) 05/28/17 22:00 Ur Epithelial Cells RARE (NONE-FEW) 05/28/17 22:00 Urine Bacteria RARE (NEGATIVE) 05/28/17 22:00 - Allergies Allergies/Adverse Reactions: Allergies Allergy/AdvReac Type Severity Reaction Status Date / Time No Known Allergies Allergy Verified 08/14/16 15:14 - Anesthesia Plan Free Text/Narrative:: CXR pending - Acknowledgements Anesthesia Type Planned: General Anesthesia Pt an Appropriate Candidate for the Planned Anesthesia: Yes Alternatives and Risks of Anesthesia Discussed w Pt/Guardian: Yes Pt/Guardian Understands and Agrees with Anesthesia Plan: Yes PreAnesthesia Questionnaire HEENT History: Reports: None Cardiovascular History: Reports: None Respiratory History: Reports: COPD, Other (See Below) (Previous smoker) Gastrointestinal History: Reports: GERD Genitourinary History: Reports: None Musculoskeletal History: Reports: None Neurological History: Reports: None Psychiatric History: Reports: None Endocrine/Metabolic History: Reports: None Hematologic History: Reports: None Immunologic History: Reports: None Oncologic (Cancer) History: Reports: None Dermatologic History: Reports: None - Infectious Disease History Infectious Disease History: Reports: Chicken Pox, Measles - Past Surgical History Head Surgeries/Procedures: Reports: None HEENT Surgical History: Reports: None Cardiovascular Surgical History: Reports: None Respiratory Surgical History: Reports: None GI Surgical History: Reports: None Male Surgical History: Reports: None Endocrine Surgical History: Reports: None Neurological Surgical History: Reports: None Musculoskeletal Surgical History: Reports: None Dermatological Surgical History: Reports: None - SUBSTANCE USE Smoking Status *Q: Former Smoker Tobacco Use Within Last Twelve Months: Cigarettes Second Hand Smoke Exposure: No Days Per Week of Alcohol Use: 1 Number of Drinks Per Day: 4 Total Drinks Per Week: 4 Recreational Drug Use History: No - HOME MEDS Home Medications: Home Meds Budesonide/Formoterol [Symbicort 160-4.5 MCG] 1 puff INH BID 06/02/14 [History] Tiotropium [Spiriva] 18 mcg INH BID 06/02/14 [History] Albuterol [Ventolin HFA] 2 puff INH ASDIRECTED PRN 05/28/17 [History] Omeprazole 20 mg PO DAILY 05/28/17 [History] - CURRENT (IN HOUSE) MEDS Current Meds: Current Medications Sodium Chloride (Normal Saline) 1,000 mls @ 125 mls/hr IV STAT KENYA Last Infusion: 05/29/17 01:38 Dose: 125 mls/hr Lactated Ringer's (Ringers, Lactated) 1,000 mls @ 125 mls/hr IV ASDIRECTED KENYA Last Admin: 05/29/17 01:38 Dose: 125 mls/hr Cefoxitin Sodium 1 gm/ Premix 50 mls @ 100 mls/hr IV Q8H KENYA Morphine Sulfate (Morphine) 1 - 5 mg IVPUSH Q1H PRN PRN Reason: Pain (severe 7-10) Last Admin: 05/29/17 04:19 Dose: 2 mg Sodium Chloride (Saline Flush) 10 ml FLUSH ASDIRECTED PRN PRN Reason: Keep Vein Open Sodium Chloride (Saline Flush) 2.5 ml FLUSH ASDIRECTED PRN PRN Reason: Keep Vein Open Discontinued Medications Hydromorphone HCl (Dilaudid) 1 mg IVPUSH ONETIME ONE Stop: 05/28/17 22:04 Last Admin: 05/28/17 22:20 Dose: 1 mg Cefoxitin Sodium 2 gm/ Premix 50 mls @ 100 mls/hr IV ONETIME ONE Stop: 05/29/17 00:29 Last Admin: 05/29/17 00:40 Dose: 100 mls/hr Ondansetron HCl (Zofran) 4 mg IVPUSH ONETIME ONE Stop: 05/28/17 22:04 Last Admin: 05/28/17 22:20 Dose: 4 mg
[2017-05-29] MEDS: cefOXitin 1 GM in Premix Bag 1 BAG IV SCH ×3 (08:05→23:10)
[2017-05-29] MEDS ORDERED: Propofol 200 MG/20 ML SDV ONE (08:26)
[2017-05-29] MEDS ORDERED: Midazolam 1 MG/ML 2 ML SDV ONE (08:27)
[2017-05-29] MEDS ORDERED: fentaNYL 100 MCG/2 ML SDV ONE (08:27)
[2017-05-29] MEDS ORDERED: Rocuronium 10 MG/ML 10 ML Syringe ONE (08:28)
[2017-05-29] MEDS ORDERED: diphenhydrAMINE 50 MG/ML SDV ONE (08:28)
[2017-05-29] MEDS ORDERED: Ketorolac 30 MG/ML SDV ONE (08:28)
[2017-05-29] MEDS ORDERED: Neostigmine Methylsulfate 1 MG/ML 5 ML Syringe ONE (08:28)
[2017-05-29] MEDS ORDERED: Ondansetron 4 MG/2 ML SDV ONE (08:28)
[2017-05-29] MEDS ORDERED: Lidocaine 2% Jelly 30 ML Tube ONE (09:21)
[2017-05-29] MEDS ORDERED: cefOXitin 1 GM Vial ONE (09:22)
[2017-05-29] MEDS ORDERED: HYDROmorphone 2 MG/ML Syringe ONE (09:23)
[2017-05-29] MEDS ORDERED: fentaNYL 100 MCG/2 ML SDV IVPUSH PRN (09:24)
[2017-05-29] MEDS ORDERED: ePHEDrine 50 MG/ML SDV ONE (09:59)
--- NOTE | 2017-05-29 11:15 | PCM.OPNOTE ---
- General Post-Op/Procedure Note Date of Surgery/Procedure: 05/29/17 Operative Procedure(s): Laparoscopic appendectomy Pre Op Diagnosis: Acute abdomen Post-Op Diagnosis: Acute appendicitis Anesthesia Technique: General ET Tube (ASA II) Primary Surgeon: Rashel Garcia Lead Developer: Duc Don Fluid Replacement, Intraop: 600 Output, Urine Amount: 400 EBL in mLs: 5 Condition: Fair Free Text/Narrative:: Intake & Output 05/28/17 05/29/17 05/29/17 19:59 03:59 11:59 Intake Total 410 50 Output Total 0 Balance 410 50 Dictation [id number] CPT CODE 60538
[2017-05-29] MEDS ORDERED: Acetaminophen 500 MG Tab PO PRN (11:17)
[2017-05-29] MEDS ORDERED: Benzocaine/Cetylpyridinium/Menthol Lozenge MUCMEM PRN (11:19)
[2017-05-29] MEDS ORDERED: Ondansetron 4 MG/2 ML SDV IVPUSH PRN (11:20)
[2017-05-29] MEDS ORDERED: Albuterol 8 GM Inhaler INH PRN (11:25)
--- NOTE | 2017-05-29 11:45 | PCM.POSTAN ---
POST ANESTHESIA ASSESSMENT - MENTAL STATUS Mental Status: Alert, Oriented - RESPIRATORY Respiratory Status: Respiratory Rate WNL, Airway Patent, O2 Saturation Stable - CARDIOVASCULAR CV Status: Pulse Rate WNL, Blood Pressure Stable - GASTROINTESTINAL GI Status: No Symptoms - POST OP HYDRATION Hydration Status: Adequate & Stable
[2017-05-29] MEDS: SPIRIVA 18 MCG INH SCH (12:34)
[2017-05-29] MEDS: Omeprazole 20 MG Cap.CR PO SCH (12:37)
[2017-05-29] MEDS: Acetaminophen/HYDROcodone 325-10 MG Tab PO PRN (16:04)
--- NOTE | 2017-05-29 17:29 | CT ---
EXAM DATE: 05/29/17 PATIENT'S AGE: 77 Patient: LUANN MARKS Facility: [place], [place] Site . Site : 1940 Study: CT Abdomen/Pelvis [id number]/26/2017 10:51:13 PM Ordering Physician: Sam Xavier Final Report: INDICATION: Generalized abdominal pain TECHNIQUE: CT abdomen and pelvis acquired without IV contrast. COMPARISON: None FINDINGS: Lower chest: Emphysematous changes. Liver: Unremarkable. Spleen: Unremarkable. Pancreas: Unremarkable. Gallbladder and bile ducts: Unremarkable. Kidneys: 1.0 centimeter partially exophytic hyperdense lesion is known right kidney. Adrenal glands: Unremarkable. GI tract: Unremarkable. Dilated thick-walled appendix measuring 9 millimeters in diameter with adjacent inflammatory stranding. Findings consistent with uncomplicated acute appendicitis. Vascular structures: Unremarkable. Lymph nodes: Unremarkable. Miscellaneous: Small fat containing umbilical hernia. No free air or significant free fluid. Pelvic Organs: Prostatomegaly. Bones: Unremarkable for age. IMPRESSION: Dilated thick-walled appendix measuring 9 millimeters in diameter with adjacent inflammatory stranding. Findings consistent with uncomplicated acute appendicitis. 1.0 centimeter round partially exophytic hyperdense lesion mid zone right kidney. Findings possibly representing a hyperdense cyst. Renal ultrasound on nonemergent basis may be helpful to better characterize. Prostatomegaly. Dictated by Hilton Hardin MD @ 05/28/2017 11:20:37 PM Dictated by: Hilton Hardin MD @ 05/28/2017 23:20:44 (Electronic Signature) Report Signed by Proxy. [facility]
--- NOTE | 2017-05-29 17:37 | CR ---
EXAM DATE: 05/29/17 PATIENT'S AGE: 77 Patient: LUANN MARKS Facility: [place], [place] Site . Site : 1940 Study: XRay Chest [id number]/27/2017 8:09:22 AM Ordering Physician: Jose Kiser Final Report: INDICATION: COPD; preop. Comparison: CT abdomen and pelvis 05/28/2017. Technique: Two-view chest. Findings: Normal size cardiac silhouette. Clear lung zuniga without evidence of acute pneumonic infiltrates or CHF. No pneumothorax or pleural effusion. Impression: Negative chest. Dictated by John Cali MD @ May 29 2017 8:18AM (Electronic Signature) Report Signed by Proxy. [facility]
--- NOTE | 2017-05-29 17:55 | OR ---
SURGEON: Rashel Garcia M.D. DATE OF PROCEDURE: 05/29/2017 OPERATION PERFORMED: Laparoscopic appendectomy. [employer] TENDER: Dr. Don, PGY-2. ANESTHESIA: General endotracheal. ASA CLASSIFICATION: II. PREOPERATIVE DIAGNOSIS: Acute abdomen and acute appendicitis. POSTOPERATIVE DIAGNOSIS: Acute appendicitis. ESTIMATED BLOOD LOSS: 5 mL. INTRAOPERATIVE FLUID REPLACEMENT: 600 mL of crystalloid. DESCRIPTION OF PROCEDURE: The patient was taken to the operating room and placed on the operating table in supine position. Time-out was called for appropriate identification of the patient and procedure. Thigh-high TEDs and sequential compression boots were placed. Following satisfactory attainment of general endotracheal anesthesia, a Lino catheter was placed in the patient's urinary bladder. The abdomen was prepped with DuraPrep solution and sterile drapes were applied. The skin incision was identified just above the umbilicus and infiltrated with 0.5% Marcaine solution. The skin incision was made and deepened through the subcutaneous tissue obtaining hemostasis with the use of electrocautery. The Veress needle was introduced into the peritoneal cavity. The saline drop test was positive. Carbon dioxide pneumoperitoneum was established with the release set at 13 cm of water. Once we had a satisfactory pneumoperitoneum, the patient was positioned with his head down and rolled to the left. Under camera vision, 12 mm suprapubic and 5 mm left lower quadrant ports were placed. Each incision was preemptively infiltrated with 0.5% Marcaine solution. The tip of the appendix was grasped, it was quite inflamed and did come apart, thus the appendix was removed in a piecemeal fashion. The base of the appendix was quite enlarged and castillo in color. The mesoappendix was taken down with the use of the Harmonic scalpel. We were then able to take an Endo-CAMMIE stapler with a blue load and place this across the base of the cecum above the enlarged appendix. Dissection was carried out until we could see the tips of the stapler beyond the edge of the cecum. The stapler was then fired. The wound was inspected for hemostasis. The mesoappendix was taken down with the Harmonic scalpel and then placed in an Endopouch. The right lower quadrant was irrigated with 1000 mL of crystalloid. All fluid was aspirated. No bleeding was noted. The Endopouch containing appendix was then delivered through the 12 mm suprapubic incision. The wounds were inspected for hemostasis. No other bleeding was noted. The suprapubic and supraumbilical incisions were closed in 2 layers approximating the subcutaneous tissue with 3-0 Polysorb and the skin with subcuticular Monocryl. It should be noted that because we had to enlarge the fascia in the suprapubic incision, the fascia was also closed with interrupted 0 Vicryl. The incisions were then Steri-Stripped and dressed with sterile Tegaderm pads. The left lower quadrant port incision was closed with subcuticular 4-0 Monocryl prior to Steri-Stripping. The patient tolerated the procedure well. Prior to emergence from anesthesia and extubation, the Lino catheter was removed. Following emergence from anesthesia and extubation, the patient was taken to recovery room in stable condition. RUBY GALLEGO /[id number]
[2017-05-29] MEDS: Budesonide 0.5 MG/2 ML Neb Susp NEB SCH (21:29)
[2017-05-30] MEDS: Acetaminophen/HYDROcodone 325-10 MG Tab PO PRN ×2 (02:01→06:57)
[2017-05-30] MEDS: Budesonide 0.5 MG/2 ML Neb Susp NEB SCH (06:26)
--- NOTE | 2017-05-30 07:44 | PCM.SURGPN ---
<Duc Don - Last Filed: 05/30/17 07:38> - General Info Date of Service: 05/30/17 Date of Surgery/Procedure: 05/29/17 POD#: 1 Post-Op Diagnosis: Acute Appendicitis Admission Diagnosis/Problem: Appendicitis Functional Status: Reports: Pain Controlled, Tolerating Diet, Ambulating, Urinating - Review of Systems General: Reports: Appetite. Denies: Fever, Chills HEENT: Reports: Other (Dry Throat) Pulmonary: Denies: Shortness of Breath, Pleuritic Chest Pain, Cough, Wheezing Cardiovascular: Denies: Chest Pain, Palpitations Gastrointestinal: Reports: Abdominal Pain (Greatly improved from pre-operative pain), Flatus. Denies: Nausea, Vomiting Genitourinary: Reports: Other (Voiding) Musculoskeletal: Reports: No Symptoms Skin: Reports: No Symptoms Neurological: Reports: No Symptoms Psychiatric: Reports: No Symptoms - Patient Data Vitals - Most Recent: Last Vital Signs Temp 37.3 C 05/30/17 05:00 Pulse 71 05/30/17 04:00 Resp 18 05/30/17 04:00 BP 102/51 L 05/30/17 04:00 Pulse Ox 90 L 05/30/17 04:00 Weight - Most Recent: 174 lb I&O - Last 24 Hours: Intake & Output 05/29/17 05/30/17 05/30/17 22:59 06:59 14:59 Intake Total 650 1880 Output Total 0 950 Balance 650 930 Lab Results Last 24 Hrs: Laboratory Results - last 24 hr 05/30/17 Range/Units 06:20 WBC 8.81 (4.0-11.0) K/uL RBC 3.90 L (4.50-5.90) M/uL Hgb 11.6 L (13.0-17.0) g/dL Hct 36.0 L (38.0-50.0) % MCV 92.3 (80.0-98.0) fL MCH 29.7 (27.0-32.0) pg MCHC 32.2 (31.0-37.0) g/dL RDW Std Deviation 48.5 (28.0-62.0) fl RDW Coeff of [place] 14 (11.0-15.0) % Plt Count 174 (150-400) K/uL MPV 9.70 (7.40-12.00) fL Neut % (Auto) 72.2 (48.0-80.0) % Lymph % (Auto) 16.1 (16.0-40.0) % [place] % (Auto) 10.1 (0.0-15.0) % Eos % (Auto) 1.1 (0.0-7.0) % Baso % (Auto) 0.5 (0.0-1.5) % Neut # (Auto) 6.4 H (1.4-5.7) K/uL Lymph # (Auto) 1.4 (0.6-2.4) K/uL [place] # (Auto) 0.9 H (0.0-0.8) K/uL Eos # (Auto) 0.1 (0.0-0.7) K/uL Baso # (Auto) 0.0 (0.0-0.1) K/uL Nucleated RBC % 0.0 /100WBC Nucleated RBCs # 0 K/uL Med Orders - Current: Current Medications Acetaminophen (Tylenol Extra Strength) 1,000 mg PO Q6H PRN PRN Reason: Pain 1-3, fever Hydrocodone Bitart/Acetaminophen ([place] 325-10 Mg) 1 tab PO Q4H PRN PRN Reason: Pain 4-6 Last Admin: 05/30/17 06:57 Dose: 1 tab Albuterol (Ventolin Hfa) 0 gm INH Q2H PRN PRN Reason: Shortness of Breath Benzocaine/Menthol (Cepacol Sore Throat) 1 lozenge MUCMEM Q4HR PRN PRN Reason: Sore Throat Last Admin: 05/29/17 12:54 Dose: 1 lozenge Budesonide (Pulmicort) 0.5 mg NEB BIDRT [facility] Last Admin: 05/30/17 06:26 Dose: Not Given Sodium Chloride (Normal Saline) 1,000 mls @ 125 mls/hr IV STAT [facility] Last Infusion: 05/29/17 01:38 Dose: 125 mls/hr Lactated Ringer's (Ringers, Lactated) 1,000 mls @ 125 mls/hr IV ASDIRECTED [facility] Last Admin: 05/29/17 23:07 Dose: 125 mls/hr Cefoxitin Sodium 1 gm/ Premix 50 mls @ 100 mls/hr IV Q8H [facility] Stop: 05/30/17 08:01 Last Admin: 05/29/17 23:10 Dose: 100 mls/hr Morphine Sulfate (Morphine) 1 - 5 mg IVPUSH Q1H PRN PRN Reason: Pain (severe 7-10) Last Admin: 05/29/17 04:19 Dose: 2 mg Omeprazole (Omeprazole) 20 mg PO DAILY [facility] Last Admin: 05/29/17 12:37 Dose: 20 mg Ondansetron HCl (Zofran) 4 mg IVPUSH Q4H PRN PRN Reason: Nausea Spiriva 18 Mcg 1 each INH DAILY [facility] Last Admin: 05/29/17 12:34 Dose: Not Given Sodium Chloride (Saline Flush) 10 ml FLUSH ASDIRECTED PRN PRN Reason: Keep Vein Open Sodium Chloride (Saline Flush) 2.5 ml FLUSH ASDIRECTED PRN PRN Reason: Keep Vein Open Discontinued Medications Bupivacaine HCl (Sensorcaine-Mpf 0.5%) Confirm Administered Dose 20 ml .ROUTE .STK-MED ONE Stop: 05/29/17 07:38 Cefazolin Sodium (Ancef) Confirm Administered Dose 1 gm .ROUTE .STK-MED ONE Stop: 05/29/17 07:37 Cefoxitin Sodium (Mefoxin) Confirm Administered Dose 1 gm .ROUTE .STK-MED ONE Stop: 05/29/17 09:23 Diphenhydramine HCl (Benadryl) Confirm Administered Dose 50 mg .ROUTE .STK-MED ONE Stop: 05/29/17 08:29 Ephedrine Sulfate (Ephedrine Sulfate) Confirm Administered Dose 50 mg .ROUTE .STK-MED ONE Stop: 05/29/17 10:00 Famotidine (Pepcid) 20 mg IVPUSH ONETIME ONE Stop: 05/29/17 07:38 Last Admin: 05/29/17 08:05 Dose: 20 mg Fentanyl (Sublimaze) Confirm Administered Dose 100 mcg .ROUTE .STK-MED ONE Stop: 05/29/17 08:28 Fentanyl (Sublimaze) 50 mcg IVPUSH Q5M PRN PRN Reason: Pain (severe 7-10) Stop: 05/29/17 13:00 Glycopyrrolate () Confirm Administered Dose 1 mg .ROUTE .STK-MED ONE Stop: 05/29/17 08:29 Hydromorphone HCl (Dilaudid) 1 mg IVPUSH ONETIME ONE Stop: 05/28/17 22:04 Last Admin: 05/28/17 22:20 Dose: 1 mg Hydromorphone HCl (Dilaudid) Confirm Administered Dose 2 mg .ROUTE .STK-MED ONE Stop: 05/29/17 09:24 Cefoxitin Sodium 2 gm/ Premix 50 mls @ 100 mls/hr IV ONETIME ONE Stop: 05/29/17 00:29 Last Admin: 05/29/17 00:40 Dose: 100 mls/hr Ketorolac Tromethamine (Toradol) Confirm Administered Dose 30 mg .ROUTE .STK- MED ONE Stop: 05/29/17 08:29 Lidocaine HCl (Xylocaine 2% Jelly) Confirm Administered Dose 30 ml .ROUTE .STK- MED ONE Stop: 05/29/17 09:22 Midazolam HCl (Versed 1 Mg/Ml) Confirm Administered Dose 2 mg .ROUTE .STK-MED ONE Stop: 05/29/17 08:28 Neostigmine Methylsulfate (Neostigmine) Confirm Administered Dose 5 mg .ROUTE .STK-MED ONE Stop: 05/29/17 08:29 Ondansetron HCl (Zofran) 4 mg IVPUSH ONETIME ONE Stop: 05/28/17 22:04 Last Admin: 05/28/17 22:20 Dose: 4 mg Ondansetron HCl (Zofran) Confirm Administered Dose 4 mg .ROUTE .STK-MED ONE Stop: 05/29/17 08:29 Propofol (Diprivan 20 Ml) Confirm Administered Dose 200 mg .ROUTE .STK-MED ONE Stop: 05/29/17 08:27 Rocuronium [place] (Zemuron) Confirm Administered Dose 100 mg .ROUTE .STK-MED ONE Stop: 05/29/17 08:29 - Exam Wound/Incisions: Dressing Dry and Intact Quality Assessment: No: Supplemental Oxygen, Urine Catheter General: Alert, Oriented, Cooperative, No Acute Distress HEENT: Pupils Equal, Pupils Reactive, EOMI Neck: Supple, Trachea Midline Lungs: Clear to Auscultation, Normal Respiratory Effort Cardiovascular: Regular Rhythm, Tachycardia (Slight tachycardia when sitting up) GI/Abdominal Exam: Soft, Tender (Appropriately tender to RLQ) Extremities: Normal Inspection, Normal Range of Motion, Non-Tender Skin: Warm, Dry Neurological: No New Focal Deficit Psy/Mental Status: Alert, Normal Affect, Normal Mood - Problem List & Annotations (1) Appendicitis SNOMED Code(s): 90728146 Code(s): K37 - UNSPECIFIED APPENDICITIS Status: Acute Priority: High Current Visit: Yes QualifierTitle: Appendicitis type: acute appendicitis - Problem List Review Problem List Initiated/Reviewed/Updated: Yes - My Orders Last 24 Hours: Active Orders 24 hr Category Date Time Status Activity as Tolerated [RC] .Routine Care 05/29/17 11:17 Active Bradycardia-Neuroaxis [employer] [RC] ROUTINE Care 05/29/17 09:24 Active Hypertension-Neuroaxis [employer] [RC] ROUTINE Care 05/29/17 09:24 Active Hypotension-Neuroaxis [employer] [RC] ROUTINE Care 05/29/17 09:24 Active Intake and Output [RC] Q12H Care 05/29/17 11:19 Active Oxygen Therapy [RC] ASDIRECTED Care 05/29/17 09:24 Active RT Aerosol Therapy [RC] ASDIRECTED Care 05/29/17 11:23 Active RT Post Treatment Assessment [RC] Click to Edit Care 05/29/17 11:22 Active RT Post Treatment Assessment [RC] Click to Edit Care 05/29/17 11:27 Active RT Pre-Treatment Assessment [RC] Click to Edit Care 05/29/17 11:22 Active RT Pre-Treatment Assessment [RC] Click to Edit Care 05/29/17 11:27 Active Regular Diet [DIET] Diet 05/29/17 Dinner Active Acetaminophen [Tylenol Extra Strength] Med 05/29/17 11:17 Active 1,000 mg PO Q6H PRN Acetaminophen/HYDROcodone [[place] 325-10 MG] Med 05/29/17 11:18 Active 1 tab PO Q4H PRN Albuterol [Ventolin HFA] Med 05/29/17 11:25 Active 0 gm INH Q2H PRN Benzocaine/Cetylpyrd/Menthol [Cepacol Sore Throat] Med 05/29/17 11:19 Active 1 lozenge MUCMEM Q4HR PRN Budesonide [Pulmicort] Med 05/29/17 21:00 Active 0.5 mg NEB BIDRT Omeprazole Med 05/29/17 11:30 Active 20 mg PO DAILY Ondansetron [Zofran] Med 05/29/17 11:20 Active 4 mg IVPUSH Q4H PRN Patient's Own Medication [Ptom] Med 05/29/17 11:30 Active 1 each INH DAILY Medication Administration Instruction [OM.PC] Routine Oth 05/29/17 07:23 Ordered Medication Orders Acetaminophen (Tylenol Extra Strength) 1,000 mg PO Q6H PRN PRN Reason: Pain 1-3, fever Hydrocodone Bitart/Acetaminophen ([place] 325-10 Mg) 1 tab PO Q4H PRN PRN Reason: Pain 4-6 Last Admin: 05/30/17 06:57 Dose: 1 tab Admin: 05/30/17 02:01 Dose: 1 tab Admin: 05/29/17 16:04 Dose: 1 tab Albuterol (Ventolin Hfa) 0 gm INH Q2H PRN PRN Reason: Shortness of Breath Benzocaine/Menthol (Cepacol Sore Throat) 1 lozenge MUCMEM Q4HR PRN PRN Reason: Sore Throat Last Admin: 05/29/17 12:54 Dose: 1 lozenge Budesonide (Pulmicort) 0.5 mg NEB BIDRT [facility] Last Admin: 05/30/17 06:26 Dose: Not Given Admin: 05/29/17 21:29 Dose: Not Given Sodium Chloride (Normal Saline) 1,000 mls @ 125 mls/hr IV STAT [facility] Last Infusion: 05/29/17 01:38 Dose: 125 mls/hr Admin: 05/28/17 22:21 Dose: 125 mls/hr Lactated Ringer's (Ringers, Lactated) 1,000 mls @ 125 mls/hr IV ASDIRECTED [facility] Last Admin: 05/29/17 23:07 Dose: 125 mls/hr Infusion: 05/29/17 22:06 Dose: 125 mls/hr Admin: 05/29/17 14:06 Dose: 125 mls/hr Infusion: 05/29/17 09:38 Dose: 125 mls/hr Admin: 05/29/17 01:38 Dose: 125 mls/hr Cefoxitin Sodium 1 gm/ Premix 50 mls @ 100 mls/hr IV Q8H [facility] Stop: 05/30/17 08:01 Last Admin: 05/29/17 23:10 Dose: 100 mls/hr Infusion: 05/29/17 16:37 Dose: 100 mls/hr Admin: 05/29/17 16:07 Dose: 100 mls/hr Infusion: 05/29/17 08:35 Dose: 100 mls/hr Admin: 05/29/17 08:05 Dose: 100 mls/hr Morphine Sulfate (Morphine) 1 - 5 mg IVPUSH Q1H PRN PRN Reason: Pain (severe 7-10) Last Admin: 05/29/17 04:19 Dose: 2 mg Omeprazole (Omeprazole) 20 mg PO DAILY [facility] Last Admin: 05/29/17 12:37 Dose: 20 mg Ondansetron HCl (Zofran) 4 mg IVPUSH Q4H PRN PRN Reason: Nausea Spiriva 18 Mcg 1 each INH DAILY [facility] Last Admin: 05/29/17 12:34 Dose: Sodium Chloride (Saline Flush) 10 ml FLUSH ASDIRECTED PRN PRN Reason: Keep Vein Open Sodium Chloride (Saline Flush) 2.5 ml FLUSH ASDIRECTED PRN PRN Reason: Keep Vein Open - Assessment Assessment (Free Text/Narrative):: Mr. Doyle is POD 1 laparoscopic appendectomy for acute appendicitis, tolerating procedure well, had fever 38.1 while patient wrapped in blankets, within normal limits one hour later after removing blankets, tolerating diet, passing flatus, voiding, denies symptomatic fever or chills, pain controlled on oral regimen, leukocytes within normal limits. - Plan Plan (Free Text/Narrative):: Discharge home today with 5 day regimen of toradol. Follow-up with Dr. Garcia. <Rashel Garcia - Last Filed: 05/30/17 07:52> - Patient Data Vitals - Most Recent: Last Vital Signs Temp 99.1 F 05/30/17 05:00 Pulse 71 05/30/17 04:00 Resp 18 05/30/17 04:00 BP 102/51 L 05/30/17 04:00 Pulse Ox 90 L 05/30/17 04:00 I&O - Last 24 Hours: Intake & Output 05/29/17 05/30/17 05/30/17 19:59 03:59 11:59 Intake Total 7701 491 0336 Output Total 0 950 Balance 1642 673 257 Lab Results Last 24 Hrs: Laboratory Results - last 24 hr 05/30/17 Range/Units 06:20 WBC 8.81 (4.0-11.0) K/uL RBC 3.90 L (4.50-5.90) M/uL Hgb 11.6 L (13.0-17.0) g/dL Hct 36.0 L (38.0-50.0) % MCV 92.3 (80.0-98.0) fL MCH 29.7 (27.0-32.0) pg MCHC 32.2 (31.0-37.0) g/dL RDW Std Deviation 48.5 (28.0-62.0) fl RDW Coeff of [place] 14 (11.0-15.0) % Plt Count 174 (150-400) K/uL MPV 9.70 (7.40-12.00) fL Neut % (Auto) 72.2 (48.0-80.0) % Lymph % (Auto) 16.1 (16.0-40.0) % [place] % (Auto) 10.1 (0.0-15.0) % Eos % (Auto) 1.1 (0.0-7.0) % Baso % (Auto) 0.5 (0.0-1.5) % Neut # (Auto) 6.4 H (1.4-5.7) K/uL Lymph # (Auto) 1.4 (0.6-2.4) K/uL [place] # (Auto) 0.9 H (0.0-0.8) K/uL Eos # (Auto) 0.1 (0.0-0.7) K/uL Baso # (Auto) 0.0 (0.0-0.1) K/uL Nucleated RBC % 0.0 /100WBC Nucleated RBCs # 0 K/uL Med Orders - Current: Current Medications Acetaminophen (Tylenol Extra Strength) 1,000 mg PO Q6H PRN PRN Reason: Pain 1-3, fever Hydrocodone Bitart/Acetaminophen ([place] 325-10 Mg) 1 tab PO Q4H PRN PRN Reason: Pain 4-6 Last Admin: 05/30/17 06:57 Dose: 1 tab Albuterol (Ventolin Hfa) 0 gm INH Q2H PRN PRN Reason: Shortness of Breath Benzocaine/Menthol (Cepacol Sore Throat) 1 lozenge MUCMEM Q4HR PRN PRN Reason: Sore Throat Last Admin: 05/29/17 12:54 Dose: 1 lozenge Budesonide (Pulmicort) 0.5 mg NEB BIDRT [facility] Last Admin: 05/30/17 06:26 Dose: Not Given Sodium Chloride (Normal Saline) 1,000 mls @ 125 mls/hr IV STAT [facility] Last Infusion: 05/29/17 01:38 Dose: 125 mls/hr Lactated Ringer's (Ringers, Lactated) 1,000 mls @ 125 mls/hr IV ASDIRECTED [facility] Last Admin: 05/29/17 23:07 Dose: 125 mls/hr Cefoxitin Sodium 1 gm/ Premix 50 mls @ 100 mls/hr IV Q8H [facility] Stop: 05/30/17 08:01 Last Admin: 05/29/17 23:10 Dose: 100 mls/hr Morphine Sulfate (Morphine) 1 - 5 mg IVPUSH Q1H PRN PRN Reason: Pain (severe 7-10) Last Admin: 05/29/17 04:19 Dose: 2 mg Omeprazole (Omeprazole) 20 mg PO DAILY [facility] Last Admin: 05/29/17 12:37 Dose: 20 mg Ondansetron HCl (Zofran) 4 mg IVPUSH Q4H PRN PRN Reason: Nausea Spiriva 18 Mcg 1 each INH DAILY [facility] Last Admin: 05/29/17 12:34 Dose: Not Given Sodium Chloride (Saline Flush) 10 ml FLUSH ASDIRECTED PRN PRN Reason: Keep Vein Open Sodium Chloride (Saline Flush) 2.5 ml FLUSH ASDIRECTED PRN PRN Reason: Keep Vein Open Discontinued Medications Bupivacaine HCl (Sensorcaine-Mpf 0.5%) Confirm Administered Dose 20 ml .ROUTE .STK-MED ONE Stop: 05/29/17 07:38 Cefazolin Sodium (Ancef) Confirm Administered Dose 1 gm .ROUTE .STK-MED ONE Stop: 05/29/17 07:37 Cefoxitin Sodium (Mefoxin) Confirm Administered Dose 1 gm .ROUTE .STK-MED ONE Stop: 05/29/17 09:23 Diphenhydramine HCl (Benadryl) Confirm Administered Dose 50 mg .ROUTE .STK-MED ONE Stop: 05/29/17 08:29 Ephedrine Sulfate (Ephedrine Sulfate) Confirm Administered Dose 50 mg .ROUTE .STK-MED ONE Stop: 05/29/17 10:00 Famotidine (Pepcid) 20 mg IVPUSH ONETIME ONE Stop: 05/29/17 07:38 Last Admin: 05/29/17 08:05 Dose: 20 mg Fentanyl (Sublimaze) Confirm Administered Dose 100 mcg .ROUTE .STK-MED ONE Stop: 05/29/17 08:28 Fentanyl (Sublimaze) 50 mcg IVPUSH Q5M PRN PRN Reason: Pain (severe 7-10) Stop: 05/29/17 13:00 Glycopyrrolate () Confirm Administered Dose 1 mg .ROUTE .STK-MED ONE Stop: 05/29/17 08:29 Hydromorphone HCl (Dilaudid) 1 mg IVPUSH ONETIME ONE Stop: 05/28/17 22:04 Last Admin: 05/28/17 22:20 Dose: 1 mg Hydromorphone HCl (Dilaudid) Confirm Administered Dose 2 mg .ROUTE .STK-MED ONE Stop: 05/29/17 09:24 Cefoxitin Sodium 2 gm/ Premix 50 mls @ 100 mls/hr IV ONETIME ONE Stop: 05/29/17 00:29 Last Admin: 05/29/17 00:40 Dose: 100 mls/hr Ketorolac Tromethamine (Toradol) Confirm Administered Dose 30 mg .ROUTE .STK- MED ONE Stop: 05/29/17 08:29 Lidocaine HCl (Xylocaine 2% Jelly) Confirm Administered Dose 30 ml .ROUTE .STK- MED ONE Stop: 05/29/17 09:22 Midazolam HCl (Versed 1 Mg/Ml) Confirm Administered Dose 2 mg .ROUTE .STK-MED ONE Stop: 05/29/17 08:28 Neostigmine Methylsulfate (Neostigmine) Confirm Administered Dose 5 mg .ROUTE .STK-MED ONE Stop: 05/29/17 08:29 Ondansetron HCl (Zofran) 4 mg IVPUSH ONETIME ONE Stop: 05/28/17 22:04 Last Admin: 05/28/17 22:20 Dose: 4 mg Ondansetron HCl (Zofran) Confirm Administered Dose 4 mg .ROUTE .STK-MED ONE Stop: 05/29/17 08:29 Propofol (Diprivan 20 Ml) Confirm Administered Dose 200 mg .ROUTE .STK-MED ONE Stop: 05/29/17 08:27 Rocuronium [place] (Zemuron) Confirm Administered Dose 100 mg .ROUTE .STK-MED ONE Stop: 05/29/17 08:29 - Problem List & Annotations (1) COPD (chronic obstructive pulmonary disease) SNOMED Code(s): 42121962 Code(s): J44.9 - CHRONIC OBSTRUCTIVE PULMONARY DISEASE, UNSPECIFIED Status : Acute Priority: Medium Current Visit: Yes Qualifiers: Chronic bronchitis type: simple - My Orders Last 24 Hours: Active Orders 24 hr Category Date Time Status Activity as Tolerated [RC] .Routine Care 05/29/17 11:17 Active Bradycardia-Neuroaxis [employer] [RC] ROUTINE Care 05/29/17 09:24 Active Hypertension-Neuroaxis [employer] [RC] ROUTINE Care 05/29/17 09:24 Active Hypotension-Neuroaxis [employer] [RC] ROUTINE Care 05/29/17 09:24 Active Intake and Output [RC] Q12H Care 05/29/17 11:19 Active Oxygen Therapy [RC] ASDIRECTED Care 05/29/17 09:24 Active RT Aerosol Therapy [RC] ASDIRECTED Care 05/29/17 11:23 Active RT Post Treatment Assessment [RC] Click to Edit Care 05/29/17 11:22 Active RT Post Treatment Assessment [RC] Click to Edit Care 05/29/17 11:27 Active RT Pre-Treatment Assessment [RC] Click to Edit Care 05/29/17 11:22 Active RT Pre-Treatment Assessment [RC] Click to Edit Care 05/29/17 11:27 Active Ready for Discharge [RC] PER UNIT ROUTINE Care 05/30/17 07:49 Active Regular Diet [DIET] Diet 05/29/17 Dinner Active Acetaminophen [Tylenol Extra Strength] Med 05/29/17 11:17 Active 1,000 mg PO Q6H PRN Acetaminophen/HYDROcodone [[place] 325-10 MG] Med 05/29/17 11:18 Active 1 tab PO Q4H PRN Albuterol [Ventolin HFA] Med 05/29/17 11:25 Active 0 gm INH Q2H PRN Benzocaine/Cetylpyrd/Menthol [Cepacol Sore Throat] Med 05/29/17 11:19 Active 1 lozenge MUCMEM Q4HR PRN Budesonide [Pulmicort] Med 05/29/17 21:00 Active 0.5 mg NEB BIDRT Omeprazole Med 05/29/17 11:30 Active 20 mg PO DAILY Ondansetron [Zofran] Med 05/29/17 11:20 Active 4 mg IVPUSH Q4H PRN Patient's Own Medication [Ptom] Med 05/29/17 11:30 Active 1 each INH DAILY Medication Administration Instruction [OM.PC] Routine Oth 05/29/17 07:23 Ordered Medication Orders Acetaminophen (Tylenol Extra Strength) 1,000 mg PO Q6H PRN PRN Reason: Pain 1-3, fever Hydrocodone Bitart/Acetaminophen ([place] 325-10 Mg) 1 tab PO Q4H PRN PRN Reason: Pain 4-6 Last Admin: 05/30/17 06:57 Dose: 1 tab Admin: 05/30/17 02:01 Dose: 1 tab Admin: 05/29/17 16:04 Dose: 1 tab Albuterol (Ventolin Hfa) 0 gm INH Q2H PRN PRN Reason: Shortness of Breath Benzocaine/Menthol (Cepacol Sore Throat) 1 lozenge MUCMEM Q4HR PRN PRN Reason: Sore Throat Last Admin: 05/29/17 12:54 Dose: 1 lozenge Budesonide (Pulmicort) 0.5 mg NEB BIDRT [facility] Last Admin: 05/30/17 06:26 Dose: Not Given Admin: 05/29/17 21:29 Dose: Not Given Sodium Chloride (Normal Saline) 1,000 mls @ 125 mls/hr IV STAT [facility] Last Infusion: 05/29/17 01:38 Dose: 125 mls/hr Admin: 05/28/17 22:21 Dose: 125 mls/hr Lactated Ringer's (Ringers, Lactated) 1,000 mls @ 125 mls/hr IV ASDIRECTED [facility] Last Admin: 05/29/17 23:07 Dose: 125 mls/hr Infusion: 05/29/17 22:06 Dose: 125 mls/hr Admin: 05/29/17 14:06 Dose: 125 mls/hr Infusion: 05/29/17 09:38 Dose: 125 mls/hr Admin: 05/29/17 01:38 Dose: 125 mls/hr Cefoxitin Sodium 1 gm/ Premix 50 mls @ 100 mls/hr IV Q8H [facility] Stop: 05/30/17 08:01 Last Admin: 05/29/17 23:10 Dose: 100 mls/hr Infusion: 05/29/17 16:37 Dose: 100 mls/hr Admin: 05/29/17 16:07 Dose: 100 mls/hr Infusion: 05/29/17 08:35 Dose: 100 mls/hr Admin: 05/29/17 08:05 Dose: 100 mls/hr Morphine Sulfate (Morphine) 1 - 5 mg IVPUSH Q1H PRN PRN Reason: Pain (severe 7-10) Last Admin: 05/29/17 04:19 Dose: 2 mg Omeprazole (Omeprazole) 20 mg PO DAILY [facility] Last Admin: 05/29/17 12:37 Dose: 20 mg Ondansetron HCl (Zofran) 4 mg IVPUSH Q4H PRN PRN Reason: Nausea Spiriva 18 Mcg 1 each INH DAILY [facility] Last Admin: 05/29/17 12:34 Dose: Sodium Chloride (Saline Flush) 10 ml FLUSH ASDIRECTED PRN PRN Reason: Keep Vein Open Sodium Chloride (Saline Flush) 2.5 ml FLUSH ASDIRECTED PRN PRN Reason: Keep Vein Open - Plan Plan (Free Text/Narrative):: Patient seen and examined with Dr. Don. I agree with his assessment and plan. Patient will be discharged on Toradol 30 mg po BID with followup in my office in 10 days.
[2017-05-30] MEDS: cefOXitin 1 GM in Premix Bag 1 BAG IV SCH (07:55)
[2017-05-30] MEDS: Omeprazole 20 MG Cap.CR PO SCH (08:16)
[2017-05-30] MEDS: SPIRIVA 18 MCG INH SCH (08:41)
[2017-05-30 08:58] VITALS: BP 105/50
== END 2017-05-30 09:25 | disposition home or self-care (01) ==
LOC: MW.ED 21:43 → MW.MS 05-29 00:22 → UNDOADMOB 05-29 00:24 → MW.MS 05-29 00:24
PROVIDERS: ADMIT Surgery; ATTEND Surgery
DX: K35.80 Unspecified acute appendicitis (principal); J44.9 Chronic obstructive pulmonary disease, unspecified; K21.9 Gastro-esophageal reflux disease without esophagitis; Z87.891 Personal history of nicotine dependence; Z79.51 Long term (current) use of inhaled steroids; Z79.899 Other long term (current) drug therapy
CPT/HCPCS: 36415; 44970; 71020; 74176; 80053; 81001; 82150; 83690; 84484; 85025; 85610; 87040; 93005; 96361; 96374; 96375; 99285; A9270; G0378; J0694; J1170; J1200; J1885; J2250; J2270; J2405; J3010; J7040; J7120; 00840; 88304; 99283; J0690; J2704

== ENCOUNTER 2017-06-02 12:48 | Emergency (ER) | payer MEDICARE, OTHER ==
[2017-06-02 13:28] VITALS: BP 151/71
--- NOTE | 2017-06-02 13:53 | EDM.PDOC ---
ED HPI GENERAL MEDICAL PROBLEM - General Chief Complaint: General Stated Complaint: IV CHECK Time Seen by Provider: 06/02/17 13:48 Source of Information: Reports: Patient History Limitations: Reports: No Limitations - History of Present Illness INITIAL COMMENTS - FREE TEXT/NARRATIVE: HISTORY AND PHYSICAL: []77-year-old male presents with redness and irritation at his old IV site History of Present Illness: []Patient was discharged 2 days ago from having appendicitis Review of Systems: As per history of present illness and below otherwise all systems reviewed and negative. Past medical history: As per history of present illness and as reviewed below otherwise noncontributory. Surgical history: As per history of present illness and as reviewed below otherwise noncontributory. Social history: No reported history of drug or alcohol abuse. Family history: As per history of present illness and as reviewed below otherwise noncontributory. Physical exam: Alert and oriented gentleman answering questions appropriately good affect he is moving well. Band-Aids and Steri-Strips were removed from his incisional sites HEENT: Atraumatic, normocehpalic, pupils reactive, negative for conjunctival pallor or scleral icterus, mucous membranes moist, throat clear, neck supple, nontender, trachea midline. Lungs: Clear to auscultation, breath sounds equal bilaterally, chest non tender. Heart: S1S2, regular, negative for clicks, rubs, or JVD. Abdomen: Soft, nondistended, nontender. Negative for masses or hepatossplenmegaly. Negative for costovertebral tenderness. Pelvis: Stable nontender. Genitourinary: Deferred. Rectal: Deferred Extremities: Atraumatic, negative for cords or calf pain. Neurovascular unremarkable. Neuro: Awake, alert, oriented. Cranial nerves II through XII unremarkable. Cerebellum unremarkable. Motor and sensory unremarkable throughout. Exam nonfocal. Diagnostics: [] Therapeutics: [] Impression: []Superficial cellulitis /phlebitis Plan: [Ceftin 250 twice a day Follow-up with your primary care provider/surgeon scheduled] Definitive disposition and diagnosis as appropriate pending reevaluation and review of above. Onset: Gradual Duration: Day(s): (2) Location: Reports: Upper Extremity, Right Right Arm Pain Score (Numeric/FACES): 1 - Related Data Allergies Allergy/AdvReac Type Severity Reaction Status Date / Time No Known Allergies Allergy Verified 08/14/16 15:14 Home Meds: Home Meds Budesonide/Formoterol [Symbicort 160-4.5 MCG] 1 puff INH BID 06/02/14 [History] Tiotropium [Spiriva] 18 mcg INH BID 06/02/14 [History] Albuterol [Ventolin HFA] 2 puff INH ASDIRECTED PRN 05/28/17 [History] Omeprazole 20 mg PO DAILY 05/28/17 [History] Cefuroxime [Ceftin] 250 mg PO BID #14 tablet 06/02/17 [Rx] Past Medical History HEENT History: Reports: None Cardiovascular History: Reports: None Respiratory History: Reports: COPD, Other (See Below) Gastrointestinal History: Reports: GERD Genitourinary History: Reports: None Musculoskeletal History: Reports: None Neurological History: Reports: None Psychiatric History: Reports: None Endocrine/Metabolic History: Reports: None Hematologic History: Reports: None Immunologic History: Reports: None Oncologic (Cancer) History: Reports: None Dermatologic History: Reports: None - Infectious Disease History Infectious Disease History: Reports: Chicken Pox, Measles - Past Surgical History Head Surgeries/Procedures: Reports: None HEENT Surgical History: Reports: None Cardiovascular Surgical History: Reports: None Respiratory Surgical History: Reports: None GI Surgical History: Reports: None Male Surgical History: Reports: None Endocrine Surgical History: Reports: None Neurological Surgical History: Reports: None Musculoskeletal Surgical History: Reports: None Dermatological Surgical History: Reports: None Social & Family History - Family History Family Medical History: Noncontributory - Tobacco Use Smoking Status *Q: Never Smoker Years of Tobacco use: 20 Packs/Tins Daily: 1 Used Tobacco, but Quit: No Month Tobacco Last Used: 1979 Second Hand Smoke Exposure: No - Caffeine Use Caffeine Use: Reports: Coffee - Alcohol Use Days Per Week of Alcohol Use: 1 Number of Drinks Per Day: 4 Total Drinks Per Week: 4 - Recreational Drug Use Recreational Drug Use: No ED ROS GENERAL - Review of Systems Review Of Systems: ROS reveals no pertinent complaints other than HPI. ED EXAM, GENERAL - Physical Exam Exam: See Below (See dictation) Course - Vital Signs Last Recorded V/S: Last Vital Signs Temp 36.4 C 06/02/17 13:25 Pulse 99 06/02/17 13:25 Resp 18 06/02/17 13:25 BP 151/71 H 06/02/17 13:25 Pulse Ox 99 06/02/17 13:25 Departure - Departure Time of Disposition: 13:51 Disposition: Home, Self-Care 01 Condition: Good Clinical Impression: Cellulitis - Discharge Information Prescriptions: Cefuroxime [Ceftin] 250 mg PO BID #14 tablet Referrals: Shaggy Miller MD [Primary Care Provider] - Additional Instructions: The following information is given to patients seen in the emergency department who are being discharged to home. This information is to outline your options for follow-up care. We provide all patients seen in our emergency department with a follow-up referral. The need for follow-up, as well as the timing and circumstances, are variable depending upon the specifics of your emergency department visit. If you don't have a primary care physician on staff, we will provide you with a referral. We always advise you to contact your personal physician following an emergency department visit to inform them of the circumstance of the visit and for follow-up with them and/or the need for any referrals to a consulting specialist. The emergency department will also refer you to a specialist when appropriate. This referral assures that you have the opportunity for followup care with a specialist. All of these measure are taken in an effort to provide you with optimal care, which includes your followup. Under all circumstances we always encourage you to contact your private physician who remains a resource for coordinating your care. When calling for followup care, please make the office aware that this follow-up is from your recent emergency room visit. If for any reason you are refused follow-up, please contact the [facility] emergency department at and asked to speak to the emergency department charge nurse. You have a cellulitis at the IV site, which is a localized skin infection. Prescription has been electronically sent for antibiotic of Ceftin 250 mg one tablet twice daily 1 week Follow-up with your surgeon as previously scheduled
== END 2017-06-02 14:09 | disposition home or self-care (01) ==
LOC: MW.ED 12:48
DX: T80.1XXA Vascular complications following infusion, transfusion and therapeutic injection, initial encounter (principal); I80.9 Phlebitis and thrombophlebitis of unspecified site; L03.113 Cellulitis of right upper limb; J44.9 Chronic obstructive pulmonary disease, unspecified; K21.9 Gastro-esophageal reflux disease without esophagitis; Z79.899 Other long term (current) drug therapy
CPT/HCPCS: 99282

== ENCOUNTER 2022-07-27 13:35 | Emergency (ER) | payer MEDICARE, OTHER ==
[2022-07-27 14:58] LABS: CARBON DIOXIDE,CO2 26.3 mmol/L (21.0-32.0); POTASSIUM,K 4.1 mmol/L (3.5-5.1)
[2022-07-27 17:19] VITALS: BP 163/85; PULSE 74
== END 2022-07-27 17:19 | disposition home or self-care (01) ==
LOC: MW.ED 13:35
DX: R07.89 Other chest pain (principal); J44.9 Chronic obstructive pulmonary disease, unspecified; K21.9 Gastro-esophageal reflux disease without esophagitis; Z79.899 Other long term (current) drug therapy
CPT/HCPCS: 36415; 71045; 71045-26; 80053; 84484; 85025; 93005; 99283; 99285

== ENCOUNTER 2023-06-27 10:03 | Emergency (ER) | payer MEDICARE, OTHER ==
[2023-06-27 10:14] LABS: BASOPHILS ABSOLUTE AUTO 0.07 K/uL (0.00-0.20); BASOPHILS PERCENT AUTO 1.2 % (0.0-1.0); EOSINOPHILS ABSOLUTE AUTO 0.31 K/uL (0.00-0.45); EOSINOPHILS PERCENT AUTO 5.1 % (0.0-6.0); HEMOGLOBIN 13.5 g/dL (14.0-18.0); IMMATURE GRAN ABSOLUTE AUTO 0.02 K/uL (0.00-0.05); IMMATURE GRAN PERCENT AUTO 0.3 % (0.0-0.4); LYMPHOCYTES ABSOLUTE AUTO 1.86 K/uL (1.00-4.80); LYMPHOCYTES PERCENT AUTO 30.7 % (24.0-44.0); MEAN CORPUSCULAR HEMOGLOBIN 29.7 pg (28.0-32.0); MEAN CORPUSCULAR HGB CONC 32.9 g/dL (32.0-36.0); MEAN CORPUSCULAR VOLUME 90.1 fL (83.0-99.0); MEAN PLATELET VOLUME 9.3 fL (9.4-12.4); MONOCYTES PERCENT AUTO 9.9 % (0.0-8.0); NEUTROPHILS ABSOLUTE AUTO 3.19 K/uL (1.80-7.70); NEUTROPHILS PERCENT AUTO 52.8 % (41.0-71.0); PLATELET COUNT,PLT 217 K/uL (150-400); RED BLOOD CELL COUNT 4.55 M/uL (4.52-5.90); WHITE BLOOD CELL COUNT,WBC 6.05 K/uL (3.9-11.3)
[2023-06-27 10:19] LABS: BASE EXCESS VENOUS 0.4 (-2.0-3.0); BICARBONATE,VENOUS 26 mEq/L (23-28); PCO2 VENOUS 44 mmHG (41-51); PH,VENOUS 7.38 (7.31-7.41)
[2023-06-27 10:21] LABS: PO2 VENOUS < 30 mmHG
[2023-06-27] MEDS ORDERED: Aspirin 81 MG Tab.Chew PO ONE (10:25)
[2023-06-27] MEDS ORDERED: Alum Hydro/Mag Hydro/Simeth XS 15 ML, Lidocaine 2% 5 ML PO ONE ×2 (10:25)
[2023-06-27 10:50] LABS: INR 1.02 (0.86-1.11); PTT,PARTIAL THROMBOPLSTIN TIME 27.5 SEC (23.9-30.7)
[2023-06-27 10:52] LABS: A/G RATIO 0.9 (0.9-1.6); ALBUMIN 3.4 g/dL (3.4-5.0); BILIRUBIN TOTAL 0.6 mg/dL (0.2-1.0); CARBON DIOXIDE,CO2 28.5 mmol/L (21.0-32.0); CREATININE 1.5 mg/dL (0.8-1.3); EST CRCL DRUG DOSING (CG) 34.85 mL/min; MAGNESIUM 2.1 mg/dL (1.8-2.4); POTASSIUM,K 4.4 mmol/L (3.5-5.1); PROTEIN TOTAL,TP 7.1 g/dL (6.4-8.2)
[2023-06-27] MEDS ORDERED: Iopamidol 755 MG/ML 500 ML Multipack Bottle IVPUSH STA (11:19)
[2023-06-27 11:20] LABS: CORONAVIRUS COVID-19 NAA NEGATIVE (NEGATIVE); INFLUENZA A NAA NEGATIVE (NEGATIVE); INFLUENZA B NAA NEGATIVE (NEGATIVE); RESPIRATORY SYNCYTIAL VIR NAA NEGATIVE (NEGATIVE)
[2023-06-27 13:47] VITALS: BP 146/63; PULSE 69
== END 2023-06-27 13:45 | disposition home or self-care (01) ==
LOC: MW.ED 10:03
DX: N40.0 Benign prostatic hyperplasia without lower urinary tract symptoms (principal); J44.9 Chronic obstructive pulmonary disease, unspecified; K21.9 Gastro-esophageal reflux disease without esophagitis; Z20.822 Contact with and (suspected) exposure to COVID-19; Z79.899 Other long term (current) drug therapy
CPT/HCPCS: 0241U; 36415; 71045; 71275; 74177; 80053; 82803; 83735; 84484; 85025; 85610; 85730; 93005; 99285; A9270; Q9967

== ENCOUNTER 2024-08-02 13:32 | Emergency (ER) | payer MEDICARE, OTHER ==
[2024-08-02 14:27] LABS: BASOPHILS ABSOLUTE AUTO 0.05 K/uL (0.00-0.20); BASOPHILS PERCENT AUTO 0.7 % (0.0-1.0); EOSINOPHILS ABSOLUTE AUTO 0.31 K/uL (0.00-0.45); EOSINOPHILS PERCENT AUTO 4.4 % (0.0-6.0); HEMATOCRIT 38.7 % (42.0-52.0); HEMOGLOBIN 12.9 g/dL (14.0-18.0); IMMATURE GRAN ABSOLUTE AUTO 0.03 K/uL (0.00-0.05); IMMATURE GRAN PERCENT AUTO 0.4 % (0.0-0.4); LYMPHOCYTES ABSOLUTE AUTO 1.32 K/uL (1.00-4.80); LYMPHOCYTES PERCENT AUTO 18.8 % (24.0-44.0); MEAN CORPUSCULAR HGB CONC 33.3 g/dL (32.0-36.0); MEAN PLATELET VOLUME 9.7 fL (9.4-12.4); MONOCYTES ABSOLUTE AUTO 0.61 K/uL (0.00-0.80); MONOCYTES PERCENT AUTO 8.7 % (0.0-8.0); NEUTROPHILS ABSOLUTE AUTO 4.69 K/uL (1.80-7.70); PLATELET COUNT,PLT 192 K/uL (150-400); WHITE BLOOD CELL COUNT,WBC 7.01 K/uL (3.9-11.3)
[2024-08-02 14:52] LABS: A/G RATIO 0.9 (0.9-1.6); ALBUMIN 3.2 g/dL (3.4-5.0); BILIRUBIN TOTAL 0.3 mg/dL (0.2-1.0); C-REACTIVE PROTEIN 0.4 mg/dL (<0.3); CALCIUM 9.1 mg/dL (8.5-10.1); CARBON DIOXIDE,CO2 25.8 mmol/L (21.0-32.0); CREATININE 1.6 mg/dL (0.8-1.3); EST CRCL DRUG DOSING (CG) 32.12 mL/min; POTASSIUM,K 4.5 mmol/L (3.5-5.1); PROTEIN TOTAL,TP 6.8 g/dL (6.4-8.2)
[2024-08-02] MEDS: Morphine 4 MG/ML Syringe IVPUSH ONE (15:01)
[2024-08-02] MEDS: Iopamidol 755 MG/ML 500 ML Multipack Bottle IVPUSH STA (15:43)
[2024-08-02 17:06] LABS: APPEARANCE,URINE CLEAR; BILIRUBIN,URINE NEGATIVE (NEGATIVE); COLOR,URINE STRAW; GLUCOSE,URINE NEGATIVE (NEGATIVE); KETONES,URINE NEGATIVE (NEGATIVE); OCCULT BLOOD,URINE NEGATIVE (NEGATIVE); PROTEIN,URINE NEGATIVE (NEGATIVE)
[2024-08-02 17:07] LABS: LEUKOCYTE ESTERASE,URINE NEGATIVE (NEGATIVE); NITRITE,URINE NEGATIVE (NEGATIVE); UROBILINOGEN,URINE 0.2 EU/dL (<2.0)
[2024-08-02 17:21] VITALS: BP 160/79; PULSE 76
== END 2024-08-02 17:39 | disposition home or self-care (01) ==
LOC: MW.ED 13:32
DX: R10.31 Right lower quadrant pain (principal); J44.9 Chronic obstructive pulmonary disease, unspecified; K21.9 Gastro-esophageal reflux disease without esophagitis; Z90.49 Acquired absence of other specified parts of digestive tract; Z87.891 Personal history of nicotine dependence; Z79.51 Long term (current) use of inhaled steroids; Z79.899 Other long term (current) drug therapy; Z75.8 Other problems related to medical facilities and other health care
CPT/HCPCS: 36415; 74177; 80053; 81003; 83605; 83690; 85025; 86140; 96374; 99284; J2270; Q9967; 99283